=== PATIENT | female | born 1960 | race Caucasian/White ===

== ENCOUNTER 2023-06-12 11:56 | Outpatient (AMB) | payer OTHER, SELFPAY ==
[2023-06-12 12:10] VITALS: BP 124/70; PULSE 91; O2SAT 97; BMI 35.5
--- NOTE | 2023-06-12 12:10 | A.OFFPC_ITS ---
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 Brother: Diabetes. Dad: COPD SocHx: Quit smoking 10 years ago. EtOH 1-2 drinks. No drugs. HPI Comments History of Present Illness Details Documentation assistance for Kenneth Montalvo MD, was provided by Shantanu Strickland, Block Cleaner on 06/12/2023 1:16 PM EST. I, Dr. Montalvo, have read, observed, and verified documentation. [facility] Medical History (Updated 06/12/23 @ 13:09 by Shantanu Strickland) Depression Anxiety Eczema Arthritis High cholesterol Sinusitis Asthma Surgical History (Updated 06/12/23 @ 12:24 by Frances Treadwell CMA) H/O tubal ligation History of tonsillectomy Family History (Updated 06/12/23 @ 12:28 by Frances Treadwell CMA) Mother High blood pressure Diabetes Father High blood pressure Sister High blood pressure Diabetes Substance abuse Mental health disorder Child No Financial Resp Mental health disorder Social History Housing: House Patient Tobacco Use Status: Never used Tobacco e-Cigarette/Vaping Use: Never Used service: No Current occupational status: employed 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 1. Little interest or pleasure in doing things: several days 2. Feeling down, depressed, or hopeless: several days 3. Trouble falling or staying asleep, or sleeping too much: more than half the days 4. Feeling tired or having little energy: more than half the days 5. Poor appetite or overeating: nearly every day 6. Feeling bad about yourself - or that you are a failure or have let yourself or your family down: more than half the days 7. Trouble concentrating on things, such as reading the newspaper or watching television: not at all 8. Moving or speaking so slowly that other people could have noticed. Or the opposite - being so fidgety or restless that you have been moving around a lot more than usual: not at all 9. Thoughts that you would be better off or of hurting yourself in some way: not at all Total score: 11 Source: Developed by Drs. Melo Hunter, Ana Herrera, Asael Brown and colleagues, with an educational tamika from [employer]. Thrive Questionnaire I am a: Patient What is your living situation today?: I have a steady place to live Within the past 12 months, did the food you bought not last and you didn't have the money to get more?: Sometimes True Within the past 12 months, did you worry whether your food would run out before you got money to buy more?: Often true Do you have trouble paying for medicines?: Yes Do you have trouble getting transportation to medical appointments?: No Do you have trouble paying your heating and electricity bill?: Yes Do you have trouble taking care of your child, family member or friend?: No Do you have trouble with day-to-day activities such as bathing, preparing meals, shopping, managing finances, etc.?: No Are you currently unemployed and looking for a job?: No Are you interested in more education?: No AUDIT C Alcohol Use Questionnaire (AUDIT-C) 1. How often do you have a drink containing alcohol?: 2-3 times a week (once a week) 2. How many drinks containing alcohol do you have on a typical day when you are drinking?: 1 or 2 3. How often do you have six or more drinks on one occasion?: Never Total Score: 3 JAYNE-7 AMB Questionnaire JAYNE-7 Feeling nervous, anxious, or on edge: 1 = Several days Not being able to stop or control worryin = More than half the days Worrying too much about different things: 2 = More than half the days Trouble relaxin = More than half the days Being so restless that it is hard to sit still: 0 = Not at all Becoming easily annoyed or irritable: 2 = More than half the days Feeling afraid as if something awful might happen: 0 = Not at all Total JAYNE-7 score (0-4 normal; 5-9 mild; 10-14 moderate; 15-21 severe): 9 Source: Developed by Drs. Melo Hunter, Ana Herrera, Asael Brown and colleagues, with an educational tamika from [employer]. ACT Questionnaire In the past 4 weeks, how much of the time did your asthma keep you from getting as much done at work, school or at home?: None of the time During the past 4 weeks, how often have you had shortness of breath?: Not at all During the past 4 weeks, how often did your asthma symptoms wake you up at night or earlier than usual in the morning?: Not at all During the past 4 weeks, how often have you had to use your rescue inhaler or nebulizer medication?: 2-3 times a week How would you rate your asthma control during the past 4 weeks?: Well controlled Score: 22 Review of Systems Const Denies chills, Denies fatigue, Denies fever(s), Denies headache(s) and Denies weakness ENT Denies dizziness and Denies headache(s) Card Denies chest pain, Denies lightheadedness, Denies dyspnea and Denies other (Palpitations) Resp Denies cough, Denies dyspnea, Denies wheezing and Denies other ( shortness of breath) Musc Denies numbness and Denies tingling Neuro Denies dizziness, Denies headache(s), Denies numbness, Denies tingling, Denies paresthesias and Denies weakness Psych Denies anxiety and Denies depression Endo Denies fatigue Aller/Immun Denies wheezing Physical exam (Primary Care) Vital Signs: Last Vital Signs Pulse 91 06/12/23 12:10 BP 124/70 06/12/23 12:10 Pulse Ox 97 06/12/23 12:10 Oxygen Delivery Method Room Air 06/12/23 12:10 BMI result Body Mass Index 35.5 Tobacco/Smoking Status: Tobacco use Status Tobacco use date assessed 06/12/23 06/12/23 12:36 Patient Tobacco Use Status Never used Tobacco 06/12/23 12:36 e-Cigarette/Vaping Use Never Used 06/12/23 12:36 PHQ-9: PHQ-9 Score PHQ-9: Total score 11 06/12/23 12:51 Const General: no acute distress and well developed Nutritional Appearance: well nourished Orientation/consciousness: patient oriented x3 HENMT Head: Yes normocephalic and Yes atraumatic Eyes General: appearance normal, both eyes and all related structures Pupils: Equal, round and reactive pupils present EOM: EOMs intact bilaterally Resp Effort & Inspection: normal respiratory effort Auscultation: clear to auscultation bilaterally Cardio Rate: regular rate Rhythm: regular rhythm Heart sounds: S1 normal heart sound present, S2 normal heart sound present, no gallops, no murmurs and no rubs Neuro General: patient oriented x3 and gait normal Cranial nerves: Yes Equal, round and reactive pupils present Psych Affect: normal affect Assessment and Plan Assessment & Plan (1) Hypertension: Code(s): I10 - Essential (primary) hypertension Plan: Blood?pressure?is?controlled.??Goal?is?less?than?140/90 Continue?current?medication (2) High cholesterol: Code(s): E78.00 - Pure hypercholesterolemia, unspecified Plan: Check?lipids (3) Pre-diabetes: Code(s): R73.03 - Prediabetes Plan: Pre?diabetes?with?strong?family?history?of?diabetes. Already?started?on?antihyperglycemic?medications?by?he r?prior?PC?though?patient?maintains?that?she?has?never?been?diagnosed?with?diabe anibal. Check?fasting?blood?sugar?and?A1c Continue?metformin Work?at?a?diet?low?in?sugars?and?starches Patient?would?like? a?call?from?the?nurse?navigator?for?nutrition?counseling?regarding?elevated?fast ing?blood?sugars?and?I?will?make?a?referral. (4) Asthma: Code(s): J45.909 - Unspecified asthma, uncomplicated Plan: Stable/controlled Continue?inhaled?medications (5) Laboratory exam ordered as part of routine general medical examination: Code(s): Z00.00 - Encounter for general adult medical examination without abnormal findings Plan: Check?labs Orders: Orders Comprehensive [place]. Panel Fast Today Z00.00 - Encounter for general adult medical examination without abnormal findings Lipid Panel Today Z00.00 - Encounter for general adult medical examination without abnormal findings Microalbumin, Random (w Creat) Today I10 - Essential (primary) hypertension TSH reflex Free T4 Today Z00.00 - Encounter for general adult medical examination without abnormal findings UA and rflx microscopic Today Z00.00 - Encounter for general adult medical examination without abnormal findings Hemoglobin A1c Today R73.01 - Impaired fasting glucose Referrals Nurse Navigator Referral R73.03 - Prediabetes Coding Level of Care Code New Pt Level 4 (18051) Diagnoses Hypertension I10 High cholesterol E78.00 Pre-diabetes R73.03 Asthma J45.909 Laboratory exam ordered as part of routine general medical examination Z00.00
== END 2023-06-12 13:24 | disposition home or self-care (01) ==
PROVIDERS: PCP Family Medicine; Visit Provider Family Medicine
DX: I10 Essential (primary) hypertension (principal); E78.00 Pure hypercholesterolemia, unspecified; R73.03 Prediabetes; J45.909 Unspecified asthma, uncomplicated; Z00.00 Encounter for general adult medical examination without abnormal findings
CPT/HCPCS: 99204

== ENCOUNTER 2023-06-16 14:04 | Outpatient (REF) | payer OTHER, SELFPAY ==
[2023-06-16 16:09] LABS: Appearance Urine Clear; Color Urine Yellow; Glucose Urine UA Negative (Negative); Leukocyte Esterase Urine Small (1+) (Negative); Nitrite Urine Negative (Negative); UMIC TRIGGER UA YES; Urine Blood Negative (Negative); Urine Ketones Negative (Negative); Urine Protein Negative (Neg-Trace)
[2023-06-16 16:39] LABS: Alanine Aminotransferase 30 U/L (0-31); Albumin Level 4.4 g/dL (3.5-5.0); Alkaline Phosphatase 117 U/L (39-117); Anion Gap 12 (12-20); Aspartate Amino Transferase 17 U/L (5-31); Bilirubin Total 0.5 mg/dL (0.0-1.0); Blood Urea Nitrogen 11 mg/dL (9-16); Calcium 10.4 mg/dL (8.4-10.2); Carbon Dioxide 25 mmol/L (22-29); Chloride 106 mmol/L (96-108); Cholesterol 209 mg/dL (<200); Estimated Glomerular Filt Rate > 60; Glucose Fasting 121 mg/dL (60-99); HDL Cholesterol 47 mg/dL (>40); LDL Cholesterol Calculated 114 mg/dL (<100); Potassium 3.7 mmol/L (3.3-5.1); Sodium 139 mmol/L (135-145); Total Protein 7.2 g/dL (6.5-8.0); Triglycerides 241 mg/dL (<150)
[2023-06-16 16:46] LABS: TSH reflex Free T4 1.09 uIU/mL (0.32-4.0)
[2023-06-16 16:47] LABS: Estimated Average Glucose 126 mg/dL
[2023-06-16 16:49] LABS: Creatinine Urine 31.41 mg/dL; Microalbumin Urine < 5.0 mg/L
[2023-06-16 17:43] LABS: Bacteria Urine None Seen (None Seen); Hyaline Casts Urine 0-2 /LPF (0-2); RBC Urine 0-2 /HPF (0-2); Squamous Epithelial Cell Urine 0-2 /HPF (0-2)
== END 2023-06-16 14:05 | disposition home or self-care (01) ==
LOC: HO.HMGCLDS 14:04
PROVIDERS: PCP Family Medicine; Visit Provider Family Medicine
DX: Z00.00 Encounter for general adult medical examination without abnormal findings (principal); I10 Essential (primary) hypertension; R73.01 Impaired fasting glucose
CPT/HCPCS: 36415; 80053; 80061; 81001; 81003; 82043; 82570; 83036; 84443

== ENCOUNTER 2023-07-16 10:02 | Outpatient (AMB) | payer OTHER, SELFPAY ==
--- NOTE | 2023-07-16 09:56 | MHC.PC.OV ---
Intake Visit Reasons: discuss medication Intake Note: Patient would like Metformin adjusted, her numbers are too high. She would like refill of Ibuprofen. She would like to talk about [employer] Allyson system, and Glucometer prescription. Allergies No Known Allergies Allergy (Verified 07/16/23 09:59) Tobacco use date assessed: 07/16/23 HPI discuss medication HPI Details 62 y/o female presents to f/u meds. She would like her metformin adjusted as her blood sugars are too high. She is on metformin 500mg daily. She has a hx of pre-diabetes. Last A1c 06/16/23 was 6.0%. She reports highest morning blood sugar was 176. 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 Cognitive needs: No Hearing needs: No Vision needs: No Review of Systems Const Denies chills, Denies fatigue, Denies fever(s), Denies headache(s) and Denies weakness ENT Denies dizziness and Denies headache(s) Card Denies dyspnea Resp Denies cough, Denies dyspnea, Denies wheezing and Denies other (shortness of breath) Musc Denies numbness and Denies tingling Neuro Denies dizziness, Denies headache(s), Denies numbness, Denies tingling and Denies weakness Psych Denies anxiety and Denies depression Endo Denies fatigue Aller/Immun Denies wheezing Physical exam (Primary Care) Tobacco/Smoking Status: Tobacco use Status Tobacco use date assessed 07/16/23 07/16/23 10:00 Patient Tobacco Use Status Never used Tobacco 07/16/23 10:00 e-Cigarette/Vaping Use Never Used 07/16/23 10:00 Telehealth Telehealth Location of provider rendering services: practice address Location of patient: address on file Patient Identification confirmed using: Name, : Yes Telehealth method: voice only Patient verbally consented to treatment: Yes Patient verbally consented to billing insurance company: Yes Patient informed of any privacy concerns related to visit: Yes Minutes spent on Phone/Video with Pt.: 5 Assessment and Plan Assessment & Plan (1) Diabetes: Code(s): E11.9 - Type 2 diabetes mellitus without complications Plan: Fasting?blood?sugars?in?160s?170s?despite?metformin?500?mg?daily. Increased?metformin?to?500?mg?b.i.d.?and?we?may?need?to?adjust?this?further?or?add?a?2nd?medication. Will?also?prescribe?Allyson?system?so?patient?can?see?affects?of?food?and?exercise/lifestyle?in?real-time Medications: New blood-glucose sensor ([employer] Allyson 3 Sensor device) As directed 2 ea 3RF E11.9 - Type 2 diabetes mellitus without complications Changed From metformin 500 mg PO BID To metformin 500 mg PO BID 30 days 60 tabs 2RF From ibuprofen 800 mg PO BID PRN pain To ibuprofen 800 mg PO BID 30 days PRN 60 tabs 2RF pain Coding Level of Care Code Tele Est Pt Level 2 (52480) Diagnoses Diabetes E11.9
== END 2023-07-21 16:28 | disposition home or self-care (01) ==
LOC: HO.HMGFM 10:02
PROVIDERS: PCP Family Medicine; Visit Provider Family Medicine
DX: E11.9 Type 2 diabetes mellitus without complications (principal)
CPT/HCPCS: 99212

== ENCOUNTER 2023-11-18 15:53 | Outpatient (AMB) | payer OTHER, SELFPAY ==
[2023-11-18 16:18] VITALS: BP 130/70; PULSE 89; O2SAT 97; BMI 35.3
--- NOTE | 2023-11-18 16:18 | MHC.PC.OV ---
Vital Signs 11/18/23 16:18 Height 5 ft 6 in Weight 219 lb BMI 35.3 BP 130/70 Blood Pressure Location Lt brachial Position Sitting Pulse 89 Pulse Source Pulse Oximeter Pulse Oximetry (%) 97 Oxygen Delivery Method Room Air Intake Visit Reasons: CPE with f/u labs, Rescheduled from Intake Note: Patient is here for her physical today. Patient would like refill on Triamcinolone cream, and Metformin refills. Allergies No Known Allergies Allergy (Verified 11/18/23 16:19) Tobacco use date assessed: 11/18/23 Dental Screening Dental Screen Date: 11/18/23 Did you have a dental visit in the last 12 months?: Yes Did you have a dental problem in the last 6 months where you did not have access to dental care?: No Was dental information given to patient?: Patient has dentist HPI CPE with f/u labs, Rescheduled from HPI Details 63 y/o female presents for a CPE with f/u labs and health maintenance. Labs were drawn 06/16/23. A1c 6.0%. A1c today 11/18/23 is 7.4.%. Triglycerides 241. TC 209. LDL 114. HDL 47. HPI Comments History of Present Illness Details Documentation assistance for Kenneth Montalvo MD, was provided by Shantanu Strickland, Ornamental Iron Worker Helper on 11/18/2023 4:48 PM EST. I, Dr. Montalvo, have read, observed, and verified documentation. 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 1. Little interest or pleasure in doing things: not at all 2. Feeling down, depressed, or hopeless: not at all 3. Trouble falling or staying asleep, or sleeping too much: not at all 4. Feeling tired or having little energy: not at all 5. Poor appetite or overeating: not at all 6. Feeling bad about yourself - or that you are a failure or have let yourself or your family down: not at all 7. Trouble concentrating on things, such as reading the newspaper or watching television: not at all 8. Moving or speaking so slowly that other people could have noticed. Or the opposite - being so fidgety or restless that you have been moving around a lot more than usual: not at all 9. Thoughts that you would be better off or of hurting yourself in some way: not at all Total score: 0 Depression Screening Interpretation: Negative Depression Screening Done: Yes 67153 - PHQ-9 Billing: Yes Source: Developed by Drs. Melo Hunter, Ana Herrera, Asael Brown and colleagues, with an educational tamika from [employer]. Thrive Questionnaire Date Thrive assessed: 11/18/23 I am a: Patient What is your living situation today?: I have a steady place to live Within the past 12 months, did the food you bought not last and you didn't have the money to get more?: Never true Within the past 12 months, did you worry whether your food would run out before you got money to buy more?: Never true Do you have trouble paying for medicines?: No Do you have trouble getting transportation to medical appointments?: No Do you have trouble paying your heating and electricity bill?: No Do you have trouble taking care of your child, family member or friend?: No Do you have trouble with day-to-day activities such as bathing, preparing meals, shopping, managing finances, etc.?: No Are you currently unemployed and looking for a job?: No Are you interested in more education?: No THRIVE Score: 0 AUDIT C Alcohol Use Questionnaire (AUDIT-C) 1. How often do you have a drink containing alcohol?: 2-3 times a week 2. How many drinks containing alcohol do you have on a typical day when you are drinking?: 1 or 2 3. How often do you have six or more drinks on one occasion?: Never Total Score: 3 JAYNE-7 AMB Questionnaire JAYNE-7 Date JAYNE - 7 assessed: 11/18/23 Feeling nervous, anxious, or on edge: 1 = Several days Not being able to stop or control worryin = Several days Worrying too much about different things: 1 = Several days Trouble relaxin = Several days Being so restless that it is hard to sit still: 1 = Several days Becoming easily annoyed or irritable: 1 = Several days Feeling afraid as if something awful might happen: 1 = Several days Total JAYNE-7 score (0-4 normal; 5-9 mild; 10-14 moderate; 15-21 severe): 7 Source: Developed by Drs. Melo Hunter, Ana Herrera, Asael Brown and colleagues, with an educational tamika from [employer]. JAYNE-7 Assessment Billing JAYNE-7 Assessment Tool: JAYNE-7 Assessment 10020 Review of Systems Const Denies chills, Denies fatigue, Denies fever(s), Denies headache(s) and Denies weakness Eyes Denies change in vision ENT Denies dizziness, Denies headache(s), Denies hearing loss, Denies nasal congestion, Denies sinus pain, Denies sinus pressure and Denies sore throat Card Denies chest pain, Denies lightheadedness, Denies dyspnea and Denies other (palpitations) Resp Denies cough, Denies dyspnea and Denies wheezing GI Denies abdominal pain, Denies melena, Denies hematochezia, Denies change in bowel habits, Denies dyspepsia and Denies nausea Denies hematuria and Denies dysuria Musc Denies abnormal gait, Denies myalgias, Denies arthralgias, Denies numbness and Denies tingling Skin/Breast Denies rash, Denies unusual bruising and Denies wounds Neuro Denies abnormal gait, Denies dizziness, Denies headache(s), Denies memory loss, Denies numbness, Denies Sensory deficit (Neuro), Denies tingling and Denies weakness Psych Denies anxiety, Denies depression and Denies memory loss Endo Denies cold intolerance, Denies fatigue, Denies heat intolerance, Denies polydipsia and Denies polyuria Dean/Lymph Denies easy bleeding and Denies easy bruising Aller/Immun Denies wheezing Physical exam (Primary Care) Vital Signs: Last Vital Signs Pulse 89 11/18/23 16:18 BP 130/70 11/18/23 16:18 Pulse Ox 97 11/18/23 16:18 Oxygen Delivery Method Room Air 11/18/23 16:18 BMI result Body Mass Index 35.3 Tobacco/Smoking Status: Tobacco use Status Tobacco use date assessed 11/18/23 11/18/23 16:27 Patient Tobacco Use Status Never used Tobacco 11/18/23 16:27 e-Cigarette/Vaping Use Never Used 11/18/23 16:27 PHQ-9: PHQ-9 Score PHQ-9: Total score 0 11/18/23 16:41 Depression Screening Interpretation: Negative Thrive Assessment: Date of Thrive Assessment Date Thrive assessed 11/18/23 11/18/23 16:27 Const General: no acute distress, well developed, alert and awake Nutritional Appearance: well nourished Orientation/consciousness: patient oriented x3 HENMT Head: Yes normocephalic and Yes atraumatic Ears: hearing grossly normal bilaterally and TM's normal bilaterally General nose exam: Normal external nose present and Normal nares present Mouth: Normal oral and palatal mucosa present and moist mucous membranes Teeth and gingiva: dentition normal Throat: Yes posterior oropharynx normal Eyes General: appearance normal, both eyes and all related structures Pupils: Equal, round and reactive pupils present and Pupil accommodation reflex normal EOM: EOMs intact bilaterally Neck Neck: Yes normal visual inspection, Yes no lymphadenopathy and Yes trachea midline Thyroid: Thyroid normal Carotids: no bruits Lymphatic: no lymphadenopathy noted Chest Chest palpation & inspection: normal inspection of the chest Resp Effort & Inspection: normal respiratory effort Auscultation: clear to auscultation bilaterally Cardio Rate: regular rate Rhythm: regular rhythm Heart sounds: S1 normal heart sound present, S2 normal heart sound present, no gallops, no murmurs and no rubs Bruits: no abdominal aortic bruits and no carotid bruits GI Palpation (GI): No Abdominal aortic bruit present, Soft to palpation, nontender, No hepatosplenomegaly present and No Rebound tenderness present Auscultation: normal bowel sounds General: Yes no CVA tenderness Back/Spine/Pelvis Back: no CVA tenderness Cervical Spine: cervical ROM normal and No Cervical spine tenderness Thoracic/Lumbar Spine: thoraco-lumbar ROM normal, No pain with thoraco-lumbar ROM, No thoracic spinal tenderness and No lumbar spinal tenderness Skin Lesions: no lesions Rashes: no rashes Trauma: no lacerations or abrasions Wounds: no wounds Nails: normal Neuro General: patient oriented x3 Cranial nerves: Yes Equal, round and reactive pupils present Cognition (Neuro): normal cognition Gait exam (Neuro): Normal gait present Motor exam (neuro): 5/5 motor strength present throughout Sensory Exam: No Sensory deficit (Neuro) Deep tendon reflexes (DTR's): Right patellar reflex intensity grade: 2+ and Left patellar reflex intensity grade: 2+ Extrem General: Yes normal to inspection and No edema Psych Appearance: grossly normal Affect: normal affect Attitude: cooperative Thought process: Normal thought process present Assessment and Plan Assessment & Plan (1) Adult general medical exam: Code(s): Z00.00 - Encounter for general adult medical examination without abnormal findings Plan: 63-year-old?female?presents?for?complete?physical?exam Encouraged?healthy?diet?with?active?lifestyle?and?plenty?of?exercise (2) Diabetes: Code(s): E11.9 - Type 2 diabetes mellitus without complications Plan: A1c?climbed?to?7.6 %. She?will?continue?metformin.??Will?add?Ozempic Will?ask?the?nurse?navigator?to?get?back?in?touch?with?her?to?continue?diabetic?teaching Encouraged?exercise?and?weight?loss (3) High cholesterol: Code(s): E78.00 - Pure hypercholesterolemia, unspecified Plan: LDL?cholesterol?is?a?little?above?goal?of?less?than?100?for?patient?with?diabetes. She?says?that?she?is?already?on?a?statin?medication?though?it?is?not?in?our?medication?list.??She?will?check?with?her?pharmacy?an?update?our?med?list. She?will?work?on?a?diet?low?in?saturated?fats?and?cholesterol?and?continue?taking?her?medication She?will?get?her?labs?redrawn?prior?to?her?next?visit?and?if?she?has?still?not?at?goal?we?will?adjust?her?medications (4) Hypertension: Code(s): I10 - Essential (primary) hypertension Plan: Blood?pressure?is?controlled.??Goal?is?less?than?140/90 Continue?current?medications (5) Screening for colon cancer: Code(s): Z12.11 - Encounter for screening for malignant neoplasm of colon Plan: Patient?had?a?Cologuard?test?about?3?years?ago She?is?due?for?repeat?Cologuard?test-ordered (6) Breast cancer screening by mammogram: Code(s): Z12.31 - Encounter for screening mammogram for malignant neoplasm of breast Plan: Patient?had?mammogram?last?month?and?is?followed?by?her?indoor sports centre manager Up-to-date (7) Screening for cervical cancer: Code(s): Z12.4 - Encounter for screening for malignant neoplasm of cervix Plan: Patient?had?Pap?smear?last?year?with?indoor sports centre manager Gets?Pap?smears?every?3?years Up-to-date Orders: Orders Lipid Panel Today E78.00 - Pure hypercholesterolemia, unspecified, Z00.00 - Encounter for general adult medical examination without abnormal findings AMB Hemoglobin A1c Today Z13.9 - Encounter for screening, unspecified Comprehensive [place]. Panel Fast Today E78.00 - Pure hypercholesterolemia, unspecified, Z00.00 - Encounter for general adult medical examination without abnormal findings Hemoglobin A1c Today E11.9 - Type 2 diabetes mellitus without complications, R73.01 - Impaired fasting glucose Referrals Cologuard Test Z12.11 - Encounter for screening for malignant neoplasm of colon, Z12.12 - Encounter for screening for malignant neoplasm of rectum Medications: New semaglutide (Ozempic) for 4 weeks 0.25 mg (0.368 mL) subcut QWEEK 1.472 mL 3RF 28 days E11.9 - Type 2 diabetes mellitus without complications Changed From triamcinolone acetonide 0.1% 1 appl topical DAILY To triamcinolone acetonide 0.1% 1 appl topical DAILY 14 days 60 grams 0RF Coding Level of Care Code Est Pt Level 3 (49777) Est Pt Prev Care 40-64y(75759) Diagnoses Adult general medical exam Z00.00 Diabetes E11.9 High cholesterol E78.00 Hypertension I10 Screening for colon cancer Z12.11 Breast cancer screening by mammogram Z12.31 Screening for cervical cancer Z12.4 Additional Codes JAYNE-7 Assessment Billing - JAYNE-7 Assessment Tool: JAYNE-7 Assessment 17998 ([id number])
== END 2023-11-18 17:00 | disposition home or self-care (01) ==
PROVIDERS: PCP Family Medicine; Visit Provider Family Medicine
DX: E11.9 Type 2 diabetes mellitus without complications (principal)
CPT/HCPCS: 83036; 99213; 99396

== ENCOUNTER 2024-02-18 15:50 | Outpatient (AMB) | payer OTHER, SELFPAY ==
--- NOTE | 2024-02-18 15:52 | A.OFFPC_ITS ---
Vital Signs 02/18/24 16:07 Height 5 ft 6 in Weight 209 lb BMI 33.7 BP 126/70 Blood Pressure Location Lt brachial Position Sitting Pulse 102 H Pulse Source Pulse Oximeter Pulse Oximetry (%) 97 Oxygen Delivery Method Room Air Intake Visit Reasons: f/u DM & Cholesterol Intake Note: Patient is here for follow up on diabetes and cholesterol. Allergies No Known Allergies Allergy (Verified 02/18/24 16:00) Tobacco use date assessed: 02/18/24 Dental Screening Dental Screen Date: 11/18/23 HPI f/u DM & Cholesterol HPI Details 63 y/o female presents to f/u diabetes a nd cholesterol. No recent labs to review for her cholesterol. Had added Ozempic for her diabetes as A1c had climbed to 7.4%. A1c today 02/18/24 is 6.6%. She is on metformin 500mg b.i.d., semaglutide 1mg. Blood pressure today 126/70, 102p. She is on losartan 100mg daily. HPI Comments History of Present Illness Details Documentation assistance for Kenneth Montalvo MD, was provided by Shantanu Strickland,? Tow Motor Operator on 02/18/2024 at 4:33 PM EST. I, Dr. Montalvo, have read, observed, and verified documentation. 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 Melo Hunter, Ana Herrera, Asael Brown and colleagues, with an educational tamika from [employer]. Review of Systems Const Denies chills, Denies fatigue, Denies fever(s), Denies headache(s) and Denies weakness ENT Denies dizziness and Denies headache(s) Card Denies dyspnea Resp Denies cough, Denies dyspnea, Denies wheezing and Denies other (shortness of breath) Musc Denies numbness and Denies tingling Neuro Denies dizziness, Denies headache(s), Denies numbness, Denies tingling and Denies weakness Psych Denies anxiety and Denies depression Endo Denies fatigue Aller/Immun Denies wheezing Physical exam (Primary Care) Vital Signs: Last Vital Signs Pulse 102 H 02/18/24 16:07 BP 126/70 02/18/24 16:07 Pulse Ox 97 02/18/24 16:07 Oxygen Delivery Method Room Air 02/18/24 16:07 BMI result Body Mass Index 33.7 Tobacco/Smoking Status: Tobacco use Status Tobacco use date assessed 02/18/24 02/18/24 16:00 Patient Tobacco Use Status Never used Tobacco 02/18/24 15:53 e-Cigarette/Vaping Use Never Used 02/18/24 15:53 Thrive Assessment: Date of Thrive Assessment Date Thrive assessed 11/18/23 02/18/24 15:53 Const General: well developed; No acute distress Nutritional Appearance: well nourished Orientation/consciousness: patient oriented x3 HENMT Head: Yes normocephalic and Yes atraumatic Eyes General: appearance normal, both eyes and all related structures Pupils: Equal, round and reactive pupils present EOM: EOMs intact bilaterally Resp Effort & Inspection: normal respiratory effort Auscultation: clear to auscultation bilaterally Cardio Rate: regular rate Rhythm: regular rhythm Heart sounds: S1 normal heart sound present, S2 normal heart sound present, no gallops, no murmurs and no rubs Neuro General: patient oriented x3 and gait normal Cranial nerves: Yes Equal, round and reactive pupils present Psych Affect: normal affect Assessment and Plan Assessment & Plan (1) Diabetes: Code(s): E11.9 - Type 2 diabetes mellitus without complications Plan: A1c?was?7.4%?and?I?added?Ozempic?at?last?visit. A1c?now?6.6% - good?control?and?at?goal?of?less?than?7.0%. Has?also?help?patient?with?weight?loss?and?she?would?like?to?continue?this Will?increase?Ozempic?from?0.5?to?1.0?mg?weekly (2) Hypertension: Code(s): I10 - Essential (primary) hypertension Plan: Blood?pressure?is?controlled.??Goal?is Less?than?140/90 Continue?current?medication (3) High cholesterol: Code(s): E78.00 - Pure hypercholesterolemia, unspecified Plan: Patient?takes?pravastatin She?has?not?gotten?her?labs?drawn?yet?but?will?do??and?we?will?follow- up?on?this?at?her?next?visit Medications: New pravastatin 10 mg PO DAILY 90 days 90 tabs 3RF Changed From metformin 500 mg PO BID 30 days 60 tabs 2RF To metformin 500 mg PO BID 90 days 180 tabs 2RF From semaglutide for 4 weeks 1 mg (0.75 mL) subcut QWEEK 28 days 3 mL 3RF E11.9 - Type 2 diabetes mellitus without complications To semaglutide for 4 weeks 1 mg (0.75 mL) subcut QWEEK 84 days 9 mL 3RF E11.9 - Type 2 diabetes mellitus without complications Coding Level of Care Code Est Pt Level 4 (48015) Diagnoses Diabetes E11.9 Hypertension I10 High cholesterol E78.00
[2024-02-18 16:07] VITALS: BP 126/70; PULSE 102; O2SAT 97; BMI 33.7
== END 2024-02-18 16:55 | disposition home or self-care (01) ==
PROVIDERS: PCP Family Medicine; Visit Provider Family Medicine
DX: E11.9 Type 2 diabetes mellitus without complications (principal); I10 Essential (primary) hypertension; E78.00 Pure hypercholesterolemia, unspecified
CPT/HCPCS: 99214

== ENCOUNTER 2024-04-26 12:25 | Outpatient (REF) | payer OTHER, SELFPAY ==
[2024-04-26 13:56] LABS: Estimated Average Glucose 103 mg/dL; Hemoglobin A1c % 5.2 % (<6.0)
[2024-04-26 14:33] LABS: Alanine Aminotransferase 17 U/L (0-31); Albumin Level 4.3 g/dL (3.5-5.0); Alkaline Phosphatase 104 U/L (39-117); Anion Gap 11 (12-20); Aspartate Amino Transferase 12 U/L (5-31); Bilirubin Total 0.4 mg/dL (0.0-1.0); Blood Urea Nitrogen 10 mg/dL (9-16); Calcium 9.5 mg/dL (8.4-10.2); Carbon Dioxide 26 mmol/L (22-29); Chloride 107 mmol/L (96-108); Cholesterol 165 mg/dL (<200); Estimated Glomerular Filt Rate > 60; Glucose Fasting 104 mg/dL (60-99); HDL Cholesterol 47 mg/dL (>40); LDL Cholesterol Calculated 84 mg/dL (<100); Potassium 3.2 mmol/L (3.3-5.1); Sodium 141 mmol/L (135-145); Triglycerides 171 mg/dL (<150)
== END 2024-04-26 12:26 | disposition home or self-care (01) ==
LOC: HO.HMGCLDS 12:25
PROVIDERS: PCP Family Medicine; Visit Provider Family Medicine
DX: Z00.00 Encounter for general adult medical examination without abnormal findings (principal); E78.00 Pure hypercholesterolemia, unspecified; R73.01 Impaired fasting glucose; E11.9 Type 2 diabetes mellitus without complications
CPT/HCPCS: 36415; 80053; 80061; 83036

== ENCOUNTER 2024-06-02 15:35 | Outpatient (AMB) | payer OTHER, SELFPAY ==
--- NOTE | 2024-06-02 16:06 | A.OFFPC_ITS ---
Vital Signs 06/02/24 16:08 Height 5 ft 6 in Weight 211 lb BMI 34.1 BP 120/80 Blood Pressure Location Lt brachial Position Sitting Respiration 12 Pulse 94 Pulse Source Pulse Oximeter Temp 98 F Temp Source Tympanic Pulse Oximetry (%) 96 Oxygen Delivery Method Room Air Intake Visit Reasons: f/u diabetes, hypertension Intake Note: f/u DM and HTN Allergies No Known Allergies Allergy (Verified 06/02/24 16:07) Medication List - Last Reconciled 06/02/24 by Kenneth Montalvo MD albuterol sulfate 90 mcg/actuation (ProAir HFA) 2 puffs inhalation Q4-6H PRN blood sugar diagnostic (OneTouch Ultra Test strips) As directed, 90 days blood sugar diagnostic (FreeStyle Lite Strips) DX: E11.9, test blood sugar 2 times a day, 90 days blood-glucose meter (Medicine in PracticeTouch Ultra2 Meter) As directed blood-glucose meter (FreeStyle Lite Meter kit) DX: E11.9, test blood sugar as directed, 999 days blood-glucose meter,continuous (DexCommuniClique G7 Project Safety Manager) As directed blood-glucose sensor (Dexcom G7 Sensor device) As directed budesonide 180 mcg/actuation (Pulmicort Flexhaler) 2 inhalations inhalation QAM bupropion HCl XL 300 mg PO QAM 90 days diltiazem HCl ER 240 mg PO DAILY ibuprofen 800 mg PO BID PRN 30 days lancets (OneTouch UltraSoft 2 Lancet) As directed, 90 days lancets (FreeStyle Lancets) Test blood sugar 2 times a day. 90 days losartan 100 mg PO DAILY 90 days metformin 500 mg PO BID 90 days pravastatin 10 mg PO DAILY 90 days semaglutide 1 mg (0.75 mL) subcut QWEEK 84 days triamcinolone acetonide 0.1% 1 appl topical DAILY 14 days Tobacco use date assessed: 02/18/24 Dental Screening Dental Screen Date: 11/18/23 HPI f/u diabetes, hypertension HPI Details 63 y/o female presents to f/u diabetes, hypertension, HLD. Last A1c 02/18/24 6.6%. She is on metformin 500mg b.i.d., semaglutide 1mg. Blood pressure today 120/80, 94p. She is on losartan 100mg daily. Last A1c 04/26/24 5.2%. Labs drawn 8/13/24. Reviewed labs with pt. Triglycerides 171. TC 165. LDL 84. HDL 47. She is on pravastatin 10mg daily. HPI Comments History of Present Illness Details Documentation assistance for Kenneth Montalvo MD, was provided by Shantanu Strickland,? Knife Machine Operator on 06/02/2024 at 4:46 PM EST. I, Dr. Montalvo, have read, observed, and verified documentation. 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 How many drinks containing alcohol do you have on a typical day when you are drinking?: 1 or 2 3. How often do you have six or more drinks on one occasion?: Never Total Score: 0 JAYNE-7 AMB Questionnaire JAYNE-7 Date JAYNE - 7 assessed: 11/18/23 Source: Developed by Drs. Melo Hunter, Ana Herrera, Asael Brown and colleagues, with an educational tamika from [employer]. Review of Systems Const Denies chills, Denies fatigue, Denies fever(s), Denies headache(s) and Denies weakness ENT Denies dizziness and Denies headache(s) Card Denies dyspnea Resp Denies cough, Denies dyspnea, Denies wheezing and Denies other (shortness of breath) Musc Denies numbness and Denies tingling Neuro Denies dizziness, Denies headache(s), Denies numbness, Denies tingling and Denies weakness Psych Denies anxiety and Denies depression Endo Denies fatigue Aller/Immun Denies wheezing Physical exam (Primary Care) Vital Signs: Last Vital Signs Temp 98 F 06/02/24 16:08 Pulse 94 06/02/24 16:08 Resp 12 06/02/24 16:08 BP 120/80 06/02/24 16:08 Pulse Ox 96 06/02/24 16:08 Oxygen Delivery Method Room Air 06/02/24 16:08 BMI result Body Mass Index 34.1 Tobacco/Smoking Status: Tobacco use Status Tobacco use date assessed 02/18/24 06/02/24 16:18 Patient Tobacco Use Status Never used Tobacco 06/02/24 16:18 e-Cigarette/Vaping Use Never Used 06/02/24 16:18 Thrive Assessment: Date of Thrive Assessment Date Thrive assessed 11/18/23 06/02/24 16:18 Const General: well developed; No acute distress Nutritional Appearance: obese Orientation/consciousness: patient oriented x3 [facility] Head: Yes normocephalic and Yes atraumatic Eyes General: appearance normal, both eyes and all related structures Pupils: Equal, round and reactive pupils present EOM: EOMs intact bilaterally Resp Effort & Inspection: normal respiratory effort Auscultation: clear to auscultation bilaterally Cardio Rate: regular rate Rhythm: regular rhythm Heart sounds: S1 normal heart sound present, S2 normal heart sound present, no gallops, no murmurs and no rubs Neuro General: patient oriented x3 and gait normal Cranial nerves: Yes Equal, round and reactive pupils present Psych Affect: normal affect Assessment and Plan Assessment & Plan (1) Diabetes: Code(s): E11.9 - Type 2 diabetes mellitus without complications Plan: A1c?shows?good?control.??Goal?is?less?than?7.0% Patient?is?also?using?Ozempic?for?weight?loss?and?she?requests?an?increase?in?he r?dose. Will?increase?Ozempic?to?2?mg?weekly.??Check?blood?sugars.??Eat?regular?meals?an d?follow-up?with?diabetic?teacher. Patient?says?she?got?an?eye?exam?very?recently.??Will?request?report (2) Hypertension: Code(s): I10 - Essential (primary) hypertension Plan: Blood?pressure?is?controlled.??Goal?is?less?than?140/90 Continue?current?medication (3) High cholesterol: Code(s): E78.00 - Pure hypercholesterolemia, unspecified Plan: LDL?cholesterol?much?improved?and?at?goal?of?less?than?100 Triglycerides?are?still?mildly?elevated. ?Keep?working?on?a?diet?lower?in?saturated?fats?and?cholesterol. ?Continue?blood?sugar?control (4) Immunization counseling: Code(s): Z71.85 - Encounter for immunization safety counseling Plan: Patient?was?enquiring?about?RSV?vaccine I?recommend?this?but?we?do?not?carry?it?here.??She?will?get?at?her?pharmacy. (5) Screening for colon cancer: Code(s): Z12.11 - Encounter for screening for malignant neoplasm of colon Plan: Cologuard?test?was?ordered?earlier?this?year?but?patient?did?not?receive?the?kit . Reordered?Cologuard?test Orders: Referrals Cologuard Test Z12.11 - Encounter for screening for malignant neoplasm of col on, Z12.12 - Encounter for screening for malignant neoplasm of rectum Medications: Changed From semaglutide for 4 weeks 1 mg (0.75 mL) subcut QWEEK 84 days 9 mL 3RF E11.9 - Type 2 diabetes mellitus without complications To semaglutide for 4 weeks 2 mg (0.75 mL) subcut QWEEK 84 days 9 mL 3RF E11.9 - Type 2 diabetes mellitus without complications Coding Level of Care Code Est Pt Level 4 (86066) Diagnoses Diabetes E11.9 Hypertension I10 High cholesterol E78.00 Immunization counseling Z71.85 Screening for colon cancer Z12.11
[2024-06-02 16:08] VITALS: BP 120/80; PULSE 94; RESP 12; TEMP 36.6; O2SAT 96; BMI 34.1
== END 2024-06-02 16:59 | disposition home or self-care (01) ==
PROVIDERS: PCP Family Medicine; Visit Provider Family Medicine
DX: E11.9 Type 2 diabetes mellitus without complications (principal); I10 Essential (primary) hypertension; E78.00 Pure hypercholesterolemia, unspecified; Z71.85 Encounter for immunization safety counseling; Z12.11 Encounter for screening for malignant neoplasm of colon

== ENCOUNTER → 2024-06-02 15:35 | Outpatient (BNVA) | payer OTHER, SELFPAY | PROVIDERS: PCP Family Medicine; Visit Provider Family Medicine | DX: E11.9 Type 2 diabetes mellitus without complications (principal); I10 Essential (primary) hypertension; E78.00 Pure hypercholesterolemia, unspecified; Z71.85 Encounter for immunization safety counseling ==

== ENCOUNTER → 2024-08-31 15:37 | Outpatient (AMB) | payer OTHER, SELFPAY ==
--- NOTE | 2024-08-31 15:32 | A.OFFPC_ITS ---
Intake Visit Reasons: sinus infection Intake Note: Sinus congestion, headache, bilateral ear pain, sneezing, wheezing. Symptoms started on Thursday. Home covid test negative yesterday. Allergies No Known Allergies Allergy (Verified 06/02/24 16:07) Medication List - Last Reconciled 08/31/24 by Sara Pompa PA-C albuterol sulfate 90 mcg/actuation (ProAir HFA) 2 puffs inhalation Q4-6H PRN blood sugar diagnostic (OneTouch Ultra Test strips) As directed, 90 days blood sugar diagnostic (FreeStyle Lite Strips) DX: E11.9, test blood sugar 2 times a day, 90 days blood-glucose meter (VitasoftTouch Ultra2 Meter) As directed blood-glucose meter (FreeStyle Lite Meter kit) DX: E11.9, test blood sugar as directed, 999 days blood-glucose meter,continuous (ScanDigital G7 Graphic Editor) As directed blood-glucose sensor (Dexcom G7 Sensor device) As directed budesonide 180 mcg/actuation (Pulmicort Flexhaler) 2 inhalations inhalation QAM bupropion HCl XL 300 mg PO QAM 90 days diltiazem HCl ER 240 mg PO DAILY ibuprofen 800 mg PO BID PRN 30 days lancets (OneTouch UltraSoft 2 Lancet) As directed, 90 days lancets (FreeStyle Lancets) Test blood sugar 2 times a day. 90 days losartan 100 mg PO DAILY 90 days metformin 500 mg PO BID 90 days pravastatin 10 mg PO DAILY 90 days semaglutide 2 mg (0.75 mL) subcut QWEEK 84 days Tobacco use date assessed: 02/18/24 Dental Screening Dental Screen Date: 11/18/23 HPI sinus infection HPI Details Pt is a 63 y/o female who presents today for an urgent visit regarding a possible sinus infection. She states that a week ago she started with cold symptoms of sinus pain, ear pressure, pnd and sneezing. She states it feels like it is mostly in her sinuses and not in her chest. No fever or chills. She has been using dayquil and nyquil and states she is getting worse. She restarted her flonase without much improvement of the nasal congestion. She has also been coughing from the postnasal drip. She states that her asthma feels a bit inflamed. She has been using albuterol more than normal, at least twice a day. She is compliant with her maintenance inhalers. Took 2- COVID test. No one around her is sick. She denies any nausea, vomiting or diarrhea. Blood sugars are currently well-controlled around 120. . 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 Melo Hunter, Ana Herrera, Asael Brown and colleagues, with an educational tamika from [employer]. Physical exam (Primary Care) Tobacco/Smoking Status: Tobacco use Status Tobacco use date assessed 02/18/24 08/31/24 15:35 Patient Tobacco Use Status Never used Tobacco 08/31/24 15:35 e-Cigarette/Vaping Use Never Used 08/31/24 15:35 Thrive Assessment: Date of Thrive Assessment Date Thrive assessed 11/18/23 08/31/24 15:35 Telehealth Telehealth Telehealth Platform: Telephone Location of provider rendering services: practice address Location of patient: address on file Patient Identification confirmed using: Name, : Yes Telehealth method: voice only Patient verbally consented to treatment: Yes Patient verbally consented to billing insurance company: Yes Patient informed of any privacy concerns related to visit: Yes Minutes spent on Phone/Video with Pt.: 15 Coding Level of Care Code Tele Est Pt Level 3 (79296) Diagnoses Bacterial sinusitis J32.9; B96.89 T2DM (type 2 diabetes mellitus) E11.9 Asthma exacerbation J45.901 Assessment & Plan Assessment & Plan (1) Bacterial sinusitis: Code(s): J32.9 - Chronic sinusitis, unspecified; B96.89 - Other specified bacterial agents as the cause of diseases classified elsewhere Category: Medical Plan: We will start on Augmentin. Discussed risks and benefits and adverse effects such as GI upset. Advised to take with food. Continue with the nasal spray. (2) T2DM (type 2 diabetes mellitus): Code(s): E11.9 - Type 2 diabetes mellitus without complications Category: Medical Plan: Monitor blood sugars closely. Did discuss that being sick and steroids can elevate blood sugars. (3) Asthma exacerbation: Code(s): J45.901 - Unspecified asthma with (acute) exacerbation Plan: We will start on a prednisone taper. Reviewed risks and benefits and adverse effects of this medication. She will follow up if no improvement or if anything worsens or changes. Medications: New amoxicillin-pot clavulanate 875-125 mg 1 tab PO Q12H 20 tabs 0RF prednisone take 3 tab po x 3 days, take 2 tab po x 3 days, 1 tab po x 3 days 18 tabs 0RF amoxicillin-pot clavulanate 875-125 mg 1 tab PO Q12H 20 tabs 0RF prednisone take 3 tab po x 3 days, take 2 tab po x 3 days, 1 tab po x 3 days 18 tabs 0RF
== END ==
LOC: HO.HMCFM 15:37
PROVIDERS: PCP Family Medicine; Visit Provider Physician Assistant
DX: J32.9 Chronic sinusitis, unspecified (principal); B96.89 Other specified bacterial agents as the cause of diseases classified elsewhere; E11.9 Type 2 diabetes mellitus without complications; J45.901 Unspecified asthma with (acute) exacerbation

== ENCOUNTER 2024-09-27 14:30 | Outpatient (AMB) | payer OTHER, SELFPAY ==
--- NOTE | 2024-09-27 14:43 | MHC.PC.OV ---
Vital Signs 09/27/24 14:46 Height 5 ft 6 in Weight 199 lb BMI 32.1 BP 120/70 Blood Pressure Location Lt brachial Position Sitting Respiration 14 Pulse 89 Pulse Source Pulse Oximeter Temp 98.4 F Temp Source Oral Pulse Oximetry (%) 96 Oxygen Delivery Method Room Air Intake Visit Reasons: f/u diabetes, hypertension Intake Note: dm and htn follow up Allergies No Known Allergies Allergy (Verified 09/27/24 14:44) Tobacco use date assessed: 02/18/24 Dental Screening Dental Screen Date: 11/18/23 HPI f/u diabetes, hypertension HPI Details 63 y/o female presents to f/u diabetes, hypertension. A1c today 09/27/24 6.1%. She is on metformin 500mg b.i.d, semaglutide 2mg. Blood pressure today 120/70, 89p. She is on losartan-HCTZ 100-25mg daily. She keeps up the active lifestyle/exercise. HPI Comments History of Present Illness Details Documentation assistance for Kenneth Montalvo MD, was provided by Shantanu Strickland,? Telephone Coin Box Collector on 09/27/2024 at 3:11 PM EST. I, Dr. Montalvo, have read, observed, and verified documentation. ?? 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 1. Little interest or pleasure in doing things: nearly every day 2. Feeling down, depressed, or hopeless: not at all 3. Trouble falling or staying asleep, or sleeping too much: not at all 4. Feeling tired or having little energy: not at all 5. Poor appetite or overeating: not at all 6. Feeling bad about yourself - or that you are a failure or have let yourself or your family down: not at all 7. Trouble concentrating on things, such as reading the newspaper or watching television: not at all 8. Moving or speaking so slowly that other people could have noticed. Or the opposite - being so fidgety or restless that you have been moving around a lot more than usual: not at all 9. Thoughts that you would be better off or of hurting yourself in some way: not at all Total score: 3 Source: Developed by Drs. Melo Hunter, Ana Herrera, Asael Brown and colleagues, with an educational tamika from [employer]. Thrive Questionnaire Date Thrive assessed: 11/18/23 I am a: Patient What is your living situation today?: I have a steady place to live Within the past 12 months, did the food you bought not last and you didn't have the money to get more?: Sometimes True Within the past 12 months, did you worry whether your food would run out before you got money to buy more?: Never true Do you have trouble paying for medicines?: Yes Do you have trouble getting transportation to medical appointments?: No Do you have trouble paying your heating and electricity bill?: Yes Do you have trouble taking care of your child, family member or friend?: No Do you have trouble with day-to-day activities such as bathing, preparing meals, shopping, managing finances, etc.?: No Are you currently unemployed and looking for a job?: No Are you interested in more education?: No Please select the resources that you would like help with: Food and Utilities Currently or been in a relationship where the following occur: No concerns reported THRIVE Score: 2 AUDIT C Alcohol Use Questionnaire (AUDIT-C) 1. How often do you have a drink containing alcohol?: 2-4 times a month 2. How many drinks containing alcohol do you have on a typical day when you are drinking?: 1 or 2 3. How often do you have six or more drinks on one occasion?: Never Total Score: 2 JAYNE-7 AMB Questionnaire JAYNE-7 Date JAYNE - 7 assessed: 11/18/23 Feeling nervous, anxious, or on edge: 0 = Not at all Not being able to stop or control worryin = Not at all Worrying too much about different things: 0 = Not at all Trouble relaxin = Not at all Being so restless that it is hard to sit still: 0 = Not at all Becoming easily annoyed or irritable: 0 = Not at all Feeling afraid as if something awful might happen: 0 = Not at all Total JAYNE-7 score (0-4 normal; 5-9 mild; 10-14 moderate; 15-21 severe): 0 Source: Developed by Drs. Melo Hunter, Ana Herrera, Asael Brown and colleagues, with an educational tamika from [employer]. Review of Systems Const Denies chills, Denies fatigue, Denies fever(s), Denies headache(s) and Denies weakness ENT Denies dizziness and Denies headache(s) Card Denies dyspnea Resp Denies cough, Denies dyspnea, Denies wheezing and Denies other (shortness of breath) Musc Denies numbness and Denies tingling Neuro Denies dizziness, Denies headache(s), Denies numbness, Denies tingling and Denies weakness Psych Denies anxiety and Denies depression Endo Denies fatigue Aller/Immun Denies wheezing Physical exam (Primary Care) Vital Signs: Last Vital Signs Temp 98.4 F 09/27/24 14:46 Pulse 89 09/27/24 14:46 Resp 14 09/27/24 14:46 BP 120/70 09/27/24 14:46 Pulse Ox 96 09/27/24 14:46 Oxygen Delivery Method Room Air 09/27/24 14:46 BMI result Body Mass Index 32.1 Tobacco/Smoking Status: Tobacco use Status Tobacco use date assessed 02/18/24 09/27/24 14:50 Patient Tobacco Use Status Never used Tobacco 09/27/24 14:50 e-Cigarette/Vaping Use Never Used 09/27/24 14:50 PHQ-9: PHQ-9 Score PHQ-9: Total score 3 09/27/24 14:50 Thrive Assessment: Date of Thrive Assessment Date Thrive assessed 11/18/23 09/27/24 14:50 Currently or been in a relationship where the following occur: No concerns reported Const General: well developed; No acute distress Nutritional Appearance: well nourished Orientation/consciousness: patient oriented x3 [facility] Head: Yes normocephalic and Yes atraumatic Eyes General: appearance normal, both eyes and all related structures Pupils: Equal, round and reactive pupils present EOM: EOMs intact bilaterally Resp Effort & Inspection: normal respiratory effort Auscultation: clear to auscultation bilaterally Cardio Rate: regular rate Rhythm: regular rhythm Heart sounds: S1 normal heart sound present, S2 normal heart sound present, no gallops, no murmurs and no rubs Neuro General: patient oriented x3 and gait normal Cranial nerves: Yes Equal, round and reactive pupils present Psych Affect: normal affect Coding Level of Care Code Est Pt Level 4 (18315) Diagnoses T2DM (type 2 diabetes mellitus) E11.9 Hypertension I10 Immunization counseling Z71.85 Assessment & Plan Assessment & Plan (1) T2DM (type 2 diabetes mellitus): Code(s): E11.9 - Type 2 diabetes mellitus without complications Category: Medical Plan: A1c?increased?to?6.1%.??Still?good?control.??Goal?is?less?than?7.0% Continue?current?medication?regimen Patient?notes?that?she?has?a?new?insurance?and?was?told?she?needs?a?prior?authorization?for?Ozempic. We?are?in?the?process?of?getting?prior?authorization.??I?did?discuss?with?her?that?sometimes?this?is?a?challenge?depending?on?insurance?company?and?that?if?there?is?any?lapse?in?her?medication?she?should?increase?her?metformin?from?500?mg?b.i.d., ?up?to?750?mg?b.i.d. hopefully?that?will?not?be?necessary?and?she?will?get?Ozempic?as?prescribed. (2) Hypertension: Code(s): I10 - Essential (primary) hypertension Category: Medical Plan: Blood?pressure?is?well?controlled?on?diltiazem?and?losartan?hydrochlorothiazide Continue?her?medication?regimen (3) Immunization counseling: Code(s): Z71.85 - Encounter for immunization safety counseling Category: Medical Plan: Patient?inquires?about?RSV?vaccine. She?is?63?years?old.??She?has?a?increased?risk?due?to?diabetes?and?also?asthma. Recommended?RSV?shot?which?she?can?get?at?her?pharmacy. Orders: Orders Comprehensive [place]. Panel Fast Today Z00.00 - Encounter for general adult medical examination without abnormal findings Lipid Panel Today Z00.00 - Encounter for general adult medical examination without abnormal findings Microalbumin, Random (w Creat) Today I10 - Essential (primary) hypertension Complete Blood Count Auto Diff Today Z00.00 - Encounter for general adult medical examination without abnormal findings UA and rflx microscopic Today Z00.00 - Encounter for general adult medical examination without abnormal findings TSH reflex Free T4 Today Z00.00 - Encounter for general adult medical examination without abnormal findings
[2024-09-27 14:46] VITALS: BP 120/70; PULSE 89; RESP 14; TEMP 36.9; O2SAT 96; BMI 32.1
== END 2024-09-27 15:13 | disposition home or self-care (01) ==
PROVIDERS: PCP Family Medicine; Visit Provider Family Medicine
DX: E11.9 Type 2 diabetes mellitus without complications (principal); I10 Essential (primary) hypertension; Z71.85 Encounter for immunization safety counseling

== ENCOUNTER → 2024-09-27 14:30 | Outpatient (BNVA) | payer SELFPAY | PROVIDERS: PCP Family Medicine; Visit Provider Family Medicine | DX: E11.9 Type 2 diabetes mellitus without complications (principal); I10 Essential (primary) hypertension; Z79.84 Long term (current) use of oral hypoglycemic drugs; Z79.899 Other long term (current) drug therapy; Z71.85 Encounter for immunization safety counseling | CPT/HCPCS: 83036; 96127 ==

== ENCOUNTER 2024-12-14 15:00 | Outpatient (AMB) | payer BC, SELFPAY ==
--- NOTE | 2024-12-14 15:02 | A.OFFPC_ITS ---
Vital Signs 3 12/14/24 15:13 Height 5 ft 6 in Weight 203 lb 2 oz BMI 32.8 BP 135/78 Blood Pressure Location Rt brachial Position Sitting Respiration 16 Pulse 94 Pulse Source Pulse Oximeter Temp 98.1 F Temp Source Oral Pulse Oximetry (%) 98 Oxygen Delivery Method Room Air Intake Visit Reasons: cpe Intake Note: patient here for CPE and she refuses to answer any of the questions. Decision Science Analyst Required: No Is last menstrual period known: No Post menopausal: No Patient : No Allergies No Known Allergies Allergy (Verified 12/14/24 15:21) Medication List - Last Reconciled 12/14/24 by Loretta Justice, BOILER/CHILLER TECHNICIAN- albuterol sulfate 90 mcg/actuation (ProAir HFA) 2 puffs inhalation Q4-6H PRN blood sugar diagnostic (OneTouch Ultra Test strips) As directed, 90 days blood sugar diagnostic (FreeStyle Lite Strips) DX: E11.9, test blood sugar 2 times a day, 90 days blood-glucose meter (Beehive IndustriesTouch Ultra2 Meter) As directed blood-glucose meter (FreeStyle Lite Meter kit) DX: E11.9, test blood sugar as directed, 999 days blood-glucose sensor (Dexcom G7 Sensor device) As directed blood-glucose,dairy grazer,cont (Dexcom G7 Ux Architect) As directed budesonide 180 mcg/actuation (Pulmicort Flexhaler) 2 inhalations inhalation QAM 30 days bupropion HCl XL 300 mg PO QAM 90 days diltiazem HCl ER 240 mg PO DAILY ibuprofen 800 mg PO BID PRN 30 days lancets (Beehive IndustriesTouch UltraSoft 2 Lancet) As directed, 90 days lancets (FreeStyle Lancets) Test blood sugar 2 times a day. 90 days losartan-hydrochlorothiazide 100-25 mg 1 tab PO DAILY metformin 500 mg PO BID 90 days pravastatin 10 mg PO DAILY 90 days prednisone take 3 tab po x 3 days, take 2 tab po x 3 days, 1 tab po x 3 days semaglutide 2 mg (0.75 mL) subcut QWEEK 84 days Tobacco use date assessed: 12/14/24 Last assessed Fall Risk: 12/14/24 Dental Screening Dental Screen Date: 11/18/23 HPI HPI Comments 2 History of Present Illness0 Details 64-year-old female with hypertension, hy perlipidemia, type 2 diabetes, moderate persistent asthma, PVD Family hx: Negative history for cancer in the family, Positive for cardiac conditions Social: Denies tobacco or alcohol use Health maintenance: Mammo 11/2024 @ [facility] - report requestd DEXA 2020 normal Cologaurd re-ordered, last done 2021 negative. Flu - UTD Tdap 2022 Optho 04/2024 in [place] - report reviewed, negative for diabetic retinopathy Specialists: derm appt january The patient is a 64-year-old female presenting for a wellness physical examination & chronic dz mgmt - The patient has Type 2 Diabetes [facility], treated with Metformin and Ozempic, showing a most recent A1c of 7.8% from September 27, 2024. Blood glucose levels observed high in the morning, consistently between 100-123 mg/dL. Not using CGM - The patient has a history of Dyslipide quinton managed on Pravastatin. - Essential Hypertension has been under control with Diltiazem and hydrochlorothiazide-losartan - Asthma: Has a prescription for Pulmic ort however this is causing her several 100 dollars per month, she was requesting an alternative. She has PRN albuterol she is up-to-date on her vaccinations - The patient is experiencing gastrointe stinal symptoms such as abdominal cramping, mimicking menstrual symptoms and occurring fortnightly, starting 6 months ago, radiates into her transverse lower back. She was constipation mixed with diarrhea. No blood in her stools. No unintentional weight changes. Feels overall bloated but in her upper abdomen. The patient lacks a recent colonoscopic review, relying instead on a previously twice-attempted Cologuard. - Reports urinary symptoms potentially i mplying a UTI, potentially associated with Ozempic. ROS: - Cardiovascular: Denies chest pain, martina rtness of breath. - Gastrointestinal: Reports cramps simil ar to menstrual pains, intermittent constipation or diarrhea. - Respiratory: Denies cough, reports use of inhaler for asthma. - Endocrine: Reports normal blood sugar monitoring, AM highs; denies hypoglycemic events. - Urinary: Reports urinary symptoms, but insufficient urine analysis sample. Exam: General: Well developed, well nourished, in no acute distress. Appears stated age. Head: Normocephalic, atraumatic. Eyes: Pupils are equal, round and reactive to light and accommodation. Conjunctivae are clear. Ears: TMs clear AU, EACS WNL Nose: Patent, without discharge. Mouth: There are no ulcers or lesions noted. No inflammation, no post nasal drip, no plaques nor exudates. Mild erythema noted in her pharynx Neck: Supple, no adenopathy , ? thyromegaly w/o pain or trachea deviation Lungs: Clear to auscultation bilaterally. No rales, rhonchi or wheeze noted. Good air flow in all estrada. Heart: Regular rate and rhythm. No murmurs, click, rubs or gallops are noted. Abdomen: Bowel sounds present in all quadrants. The abdomen is soft, nontender, with no masses or organomegaly noted. No hernias are noted. Musculoskeletal: Joints are nontender, without swelling, redness, or effusions. Range of motion is observed to be normal. Pulses: Peripheral pulses are equal and palpable bilaterally decreased. Hairless lower ext. LLE w/ open area - see picture. Unable to perform foot exam today. Extremities: No clubbing, cyanosis nor edema is noted. Neurologic: Gait and station normal. Cranial Nerves 2-12 intact. Motor strength grossly symmetrical and intact. No sensory loss. Balance normal. Skin: No rashes. Turgor is good. Skin color is good. Hair and nails are without abnormalities. She has several scattered skin lesions on arms and trunk anterior and posterior. She has scabs on R upper arm that started 2 weeks ago; see picture Psych: Normal eye contact, affect and mood appropriate, and normal interactions. Patient is alert and appropriate to context. Results She reports that she had all of the labs ordered by her primary care provider done at [facility] or [facility]. Unfortunately I do not have these results available to me today. The patient was made aware that I will locate the labs and review. Discussion I explained to the patient the importance of monitoring both her blood glucose levels and lipid profiles to manage her type 2 diabetes and dyslipidemia optimally. The repeat A1c should be drawn after December 27 for insurance compliance. The lipid panel will also be readdressed during the upcoming lab scheduling to ascertain current dyslipidemia management success. Continuing hypertension management should remain a priority due to its contribution to cardiovascular risk. Regarding asthma, the transition to [facility] should adhere to insurance guidance, ensuring no discontinuity in her asthma management. The gastrointestinal symptoms, require further evaluation. We considered a future colonoscopy given ongoing intestinal symptoms, with cologuard pending result coordination. Notably, recent exams like the mammogram require integration with past health data. Overall, we planned for frequent communication to review forthcoming lab analyses and subsequent process adjustments, recognizing her insurance requirements' constraints. Plan: Get labs I reviewed chart; no imaging avail to me She gets a lot of her stuff done at [facility] will have to request staff to get some records if any on ABD Stop pulmicort start arnuity d/t insurance otherwise cont all other meds until labs are reviewed will have to consider if metformin or ozempic are causing or contributing to her GI complaints Get skin areas evaled by derm need to do foot exam at next visit; if area to lle cont, consider vascular referral/workup. she states this was a known traumatic event recently. close iterim fu in 3 weeks w/ repeat labs to include a1c; new: lipase, amylase. An additional 45 minutes was spent addressing the problem(s) noted at todays visit. This includes time spent before the visit reviewing the chart, time spent during the visit, and time spent after the visit on documentation reviewing laboratory results, diagnostic imaging, medications, performing a medically necessary evaluation, counseling on diagnoses, care coordination, ordering appropriate tests, ordering appropriate medications, review of tests performed by other providers, reporting test results with the patient, communication with other healthcare providers. [facility] Medical History (Updated 12/14/24 @ 17:39 by Loretta Justice, [facility]) Anxiety Arthritis Asthma Depression Eczema High cholesterol History of mammogram (~2023) Sinusitis Surgical History H/O tubal ligation History of tonsillectomy Family History Mother High blood pressure Diabetes Father High blood pressure Sister High blood pressure Diabetes Substance abuse Mental health disorder Child No Financial Resp Mental health disorder Social History Housing: House Patient Tobacco Use Status: Never used Tobacco e-Cigarette/Vaping Use: Never Used Second Hand Smoke Exposure: No service: No Current occupational status: employed 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 Cognitive needs: No Hearing needs: No Vision needs: No Questionnaire Thrive Questionnaire Date Thrive assessed: 09/27/24 I am a: Patient What is your living situation today?: I have a steady place to live Within the past 12 months, did the food you bought not last and you didn't have the money to get more?: Sometimes True Within the past 12 months, did you worry whether your food would run out before you got money to buy more?: Never true Do you have trouble paying for medicines?: Yes Do you have trouble getting transportation to medical appointments?: No Do you have trouble paying your heating and electricity bill?: Yes Do you have trouble taking care of your child, family member or friend?: No Do you have trouble with day-to-day activities such as bathing, preparing meals, shopping, managing finances, etc.?: No Are you currently unemployed and looking for a job?: No Are you interested in more education?: No Currently or been in a relationship where the following occur: No concerns reported THRIVE Score: 2 JAYNE-7 AMB Questionnaire JAYNE-7 Date JAYNE - 7 assessed: 11/18/23 Source: Developed by Drs. Melo Hunter, Ana Herrera, Asael Brown and colleagues, with an educational tamika from [employer]. Physical exam (Primary Care) Vital Signs: Last Vital Signs Temp 98.1 F 12/14/24 15:13 Pulse 94 12/14/24 15:13 Resp 16 12/14/24 15:13 BP 135/78 12/14/24 15:13 Pulse Ox 98 12/14/24 15:13 Oxygen Delivery Method Room Air 12/14/24 15:13 BMI result Body Mass Index 32.8 BMI Assessment/Plan discussion: High BMI High, discussed plan: lifestyle Tobacco/Smoking Status: Tobacco use Status Tobacco use date assessed 12/14/24 12/14/24 15:16 Patient Tobacco Use Status Never used Tobacco 12/14/24 15:04 e-Cigarette/Vaping Use Never Used 12/14/24 15:04 Thrive Assessment: Date of Thrive Assessment Date Thrive assessed 09/27/24 12/14/24 15:04 Currently or been in a relationship where the following occur: No concerns reported Coding Level of Care Code Est Pt Level 5 (26843) Est Pt Prev Care 40-64y(21907) Diagnoses Encounter for general adult medical examination with abnormal findings Z00.01 Hypertension due to endocrine disorder I15.2 Hypertension type: secondary to endocrine disorders High cholesterol E78.00 Type 2 diabetes mellitus with other specified complication, without long-term current use of insulin E11.69 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 insulin use: without asphalt heater operator use Diabetes mellitus complication status: with other specified complication Abdominal cramping R10.9 Obesity (BMI 30-39.9) E66.9 PVD (peripheral vascular disease) I73.9 Screening for colon cancer Z12.11 Moderate persistent asthma without complication J45.40 Asthma severity: moderate Asthma persistence: persistent Asthma complication type: uncomplicated Assessment & Plan Assessment & Plan (1) Encounter for general adult medical examination with abnormal findings: Code(s): Z00.01 - Encounter for general adult medical examination with abnormal findings Category: Medical (2) Hypertension: Code(s): I10 - Essential (primary) hypertension Category: Medical Qualifiers: Hypertension type: secondary to endocrine disorders Qualified Code(s): I15.2 - Hypertension secondary to endocrine disorders (3) High cholesterol: Code(s): E78.00 - Pure hypercholesterolemia, unspecified Category: Medical (4) T2DM (type 2 diabetes mellitus): Code(s): E11.9 - Type 2 diabetes mellitus without complications Category: Medical Qualifiers: Diabetes mellitus retirement insulin use: without asphalt heater operator use Diabetes mellitus complication status: with other specified complication Qualified Code(s): E11.69 - Type 2 diabetes mellitus with other specified complication (5) Abdominal cramping: Code(s): R10.9 - Unspecified abdominal pain Category: Medical (6) Obesity (BMI 30-39.9): Code(s): E66.9 - Obesity, unspecified Category: Medical (7) PVD (peripheral vascular disease): Comment: Based on clinical exam on statin manage BP, cholesterol and glucose consider referral to Vascular Code(s): I73.9 - Peripheral vascular disease, unspecified Category: Medical (8) Screening for colon cancer: Code(s): Z12.11 - Encounter for screening for malignant neoplasm of colon Category: Medical (9) Asthma: Code(s): J45.909 - Unspecified asthma, uncomplicated Category: Medical Qualifiers: Asthma severity: moderate Asthma persistence: persistent Asthma complication type: uncomplicated Qualified Code(s): J45.40 - Moderate persistent asthma, uncomplicated Plan . Orders: Orders 2 Amylase Today R10.9 - Unspecified abdominal pain Hemoglobin A1c Today E11.9 - Type 2 diabetes mellitus without complications Microalbumin, Random (w Creat) Today I10 - Essential (primary) hypertension Lipase Today R10.9 - Unspecified abdominal pain Referrals 2 Cologuard Test Z12.11 - Encounter for screening for malignant neoplasm of colon, Z12.12 - Encounter for screening for malignant neoplasm of rectum Medications: New 2 fluticasone furoate 100 mcg/actuation (Arnuity Ellipta) 1 inh inhalation DAILY 30 ea 12RF Refilled 2 metformin 500 mg PO BID 90 days 180 tabs 0RF pravastatin 10 mg PO DAILY 90 days 90 tabs 3RF blood sugar diagnostic (FreeStyle Lite Strips) DX: E11.9, test blood sugar 2 times a day, 90 days 200 ea 4RF E11.9 - Type 2 diabetes mellitus without complications lancets (FreeStyle Lancets) Test blood sugar 2 times a day. 90 days 200 ea 4RF DX: E11.9, test blood sugar 4 times a day, 90 day E11.9 - Type 2 diabetes mellitus without complications losartan-hydrochlorothiazide 100-25 mg 1 tab PO DAILY 90 tabs 3RF Discontinued 2 blood-glucose meter (OneTouch Ultra2 Meter) Discontinued Reason: Patient no longer taking As directed 1 ea 0RF E11.9 - Type 2 diabetes mellitus without complications lancets (OneTouch UltraSoft 2 Lancet) Discontinued Reason: Patient no longer taking As directed, 90 days 100 ea 3RF E11.9 - Type 2 diabetes mellitus without complications blood-glucose sensor (Dexcom G7 Sensor device) Discontinued Reason: Patient no longer taking As directed 2 ea 3RF monitor blood sugar E11.9 - Type 2 diabetes mellitus without complications blood sugar diagnostic (OneTouch Ultra Test strips) Discontinued Reason: Patient no longer taking As directed, 90 days 100 ea 3RF E11.9 - Type 2 diabetes mellitus without complications blood-glucose,dairy grazer,cont (Dexcom G7 Ux Architect) Discontinued Reason: Patient no longer taking As directed 1 ea 0RF monitor blood sugar E11.9 - Type 2 diabetes mellitus without complications prednisone Discontinued Reason: Patient Completed Course take 3 tab po x 3 days, take 2 tab po x 3 days, 1 tab po x 3 days 18 tabs 0RF budesonide 180 mcg/actuation (Pulmicort Flexhaler) Discontinued Reason: Insurance Denied 2 inhalations inhalation QAM 30 days 1 ea 4RF
[2024-12-14 15:13] VITALS: BP 135/78; PULSE 94; RESP 16; TEMP 36.7; O2SAT 98; BMI 32.8
== END 2024-12-14 15:56 | disposition home or self-care (01) ==
LOC: HO.HMCFM 15:01
PROVIDERS: PCP Family Medicine; Visit Provider Nurse Practitioner Family
DX: Z00.01 Encounter for general adult medical examination with abnormal findings (principal); I15.2 Hypertension secondary to endocrine disorders; E78.00 Pure hypercholesterolemia, unspecified; E11.69 Type 2 diabetes mellitus with other specified complication; R10.9 Unspecified abdominal pain; E66.9 Obesity, unspecified; I73.9 Peripheral vascular disease, unspecified; Z12.11 Encounter for screening for malignant neoplasm of colon; J45.40 Moderate persistent asthma, uncomplicated

== ENCOUNTER 2024-12-14 15:00 | Outpatient (REF) | payer BC, SELFPAY ==
--- OUTSIDE RECORDS SUMMARY | 2024-12-14 17:44 | XMS_ITS | Data Portability ---
Author Organization [facility], [facility] Address [address] [place] [address] Assessment No assessment recorded. Plan of Treatment Reminders Order Date Submit Date Provider Last Modified By Organization Details Last Modified Time Details Appointments RECHECK 15 2024 03:15P M Jatin Eldridge PA-C Not available Not available Not available Lab None recorded . Referral None recorded . Procedures None recorded . Surgeries None recorded . Imaging None recorded . Medication Orders None recorded . Patient TargetsNo targets recorded. Patient InstructionsNo instructions recorded. Reason for Referral None Reported. Problems Name Problem SNOMED Code Status Onset Date Resolution Date Notes Provider Name and Address Organization Details Recorded Time No complaints 701112617 Active Status: 'I'; Not Available [facility] 4 09:13:11 Osteoarthri tis of knee 234561789 Active 2023 Seferino Dooley PA-C [address], [place], [address] , [facility] 4 08:44:54 Idiopathic osteoarthri tis 311395411 Active 2018 Problem Code: M17.0; Problem Code Type: ICD-10; Status: 'A'; Not Available [facility] 4 11:13:04 Problem Notes None recorded. Procedures Surgical History Date Name Laterality Status Provider Name and Address Organization Details Recorded Time 5 Knee Kenalog 40 1cc Injection, Bilateral completed Jatin Eldridge PA-C [address], [place], [address], [facility] 09/21/2024 16:47:14 4 Knee Kenalog 40 1cc Injection, Bilateral completed Jatin Eldridge PA-C [address], [place], [address], [facility] 06/13/2024 12:39:01 4 Knee Kenalog 40 1cc Injection, Bilateral completed Jatin Eldridge PA-C [address], [place], [address], [facility] 02/01/2024 07:49:49 Imaging Results None recorded. Procedure Notes None recorded. Medical Equipment None Reported. Allergies No known drug allergies Medications Name Sig Start Date Stop Date Status Note LastModified by Organization Details LastModified Time fluconazole 100 mg tablet TAKE 1 TABLET NOW MAY REPEAT IN 72 HOURS IF SYMPTOMS PERSISTS active Not Available Not Available No t Available metformin 500 mg tablet TAKE ONE TABLET BY MOUTH TWICE A DAY active Not Available Not Available No t Available diltiazem ER (XR/XT) 240 mg capsule,exte nded release 24 hr, controlled active Not Available Not Available N ot Available ibuprofen 800 mg tablet TAKE ONE TABLET BY MOUTH EVERY 8 HOURS NEEDED FOR PAIN FOR ARTHRITIS TAKE WITH FOOD OR MILK active Not Available Not Available No t Available diltiazem CD 240 mg capsule,exte nded release 24 hr TAKE ONE CAPSULE BY MOUTH EVERY DAY active Not Available Not Available No t Available metronidazol e 500 mg tablet TAKE ONE TABLET BY MOUTH TWICE A DAY FOR 7 DAYS - NO ALCOHOL WHILE TAKING THIS active Not Available Not Available Not Available triamcinolon e acetonide 0.1 % topical cream APPLY TOPICALLY ONCE DAILY FOR 14 DAYS active Not Available Not Available Not Available losartan 100 mg-hydrochlo rothiazide 25 mg tablet TAKE 1 TABLET BY MOUTH EVERY DAY active Not Available Not Available No t Available pravastatin 10 mg tablet TAKE ONE TABLET BY MOUTH EVERY DAY active Not Available Not Available No t Available OneTouch Ultra Test strips USE DIRECTED ONCE DAILY active Not Available Not Available N ot Available econazole nitrate 1 % topical cream APPLY TO AFFECTED AREAS ON THE FEET TWICE DAILY UNTIL IMPROVED THEN ONCE WEEKLY FOR MAINTENANCE active Not Available Not Available Not Available clotrimazole -betamethaso ne 1 %-0.05 % topical cream APPLY TO AFFECTED AND SURROUNDING AREAS OF SKIN TOPICALLY TWO TIMES A DAY IN THE MORNING AND IN THE EVENING FOR 2 WEEKS active Not Available Not Available No t Available fluocinonide 0.05 % topical cream APPLY TO THE HANDS AND LEGS TWO TIMES A DAY FOR 2 WEEKS, BREAK ONE WEEK. REPEAT NEEDED FOR FLARES active Not Available Not Available No t Available losartan 100 mg tablet TAKE ONE TABLET BY MOUTH EVERY DAY active Not Available Not Available No t Available metformin ER 500 mg tablet,exten ded release 24 hr TAKE ONE TABLET BY MOUTH EVERY DAY active Not Available Not Available No t Available bupropion HCl XL 300 mg 24 hr tablet, extended release TAKE ONE TABLET BY MOUTH EVERY DAY IN THE MORNING active Not Available Not Available No t Available Flovent HFA 110 mcg/actuatio n aerosol inhaler INHALE 2 PUFFS TWO TIMES A DAY. RINSE MOUTH AND THROAT AFTER USE. active Not Available Not Available N ot Available diclofenac 1 % topical gel APPLY TOPICALLY FOUR TIMES DAILY active Not Available Not Available No t Available OneTouch Ultra2 Meter USE DIRECTED active Not Available Not Available No t Available OneTouch Delica Plus Lancet 30 gauge USE DIRECTED DAILY active Not Available Not Available No t Available Tiadylt ER 240 mg capsule,exte nded release TAKE ONE CAPSULE BY MOUTH EVERY DAY active Not Available Not Available No t Available Ozempic 1 mg/dose (4 mg/3 mL) subcutaneous pen injector active Not Available Not Available Not Available Ozempic 2 mg/dose (8 mg/3 mL) subcutaneous pen injector active Not Available Not Available Not Available Dexcom G7 [employer] Handicapper FOR MONITORING BLOOD SUGAR DIRECTED active Not Available Not Available Not Available Dexcom G7 Sensor device FOR MONITORING BLOOD SUGAR DIRECTED active Not Available Not Available Not Available Ozempic 0.25 mg or 0.5 mg (2 mg/3 mL) subcutaneous pen injector INJECT 0.5MG UNDER THE SKIN EVERY WEEK active Not Available Not Available N ot Available Vitals Date Recorded Body height Body mass index (BMI) Body weight Provider Name and Address Organization Details Last Updated DateTime 02/01/2024 167.64 cm 34.7 kg/m2 85317.36 g ALISSA DELEON [facility] 02/01/2024 10:37:21 Date Recorded Body height Provider Name an d Address Organization Details Last Updated DateTime 06/13/2024 167.64 cm MARLI LEMOS [facility] 06/13/2024 13:04:26 Date Recorded Body height Provider Name an d Address Organization Details Last Updated DateTime 09/21/2024 167.64 cm MARLI LEMOS [place] [facility] [place] [facility] 09/21/2024 15:31:20 Social History None recorded. Functional Status None recorded. Mental Status None recorded. Family History Nothing Reported. Medical History No medical history recorded. Gynecological HistoryNo gynecological history recorded. Obstetrics History GPAL:G 0 P 0 0 0 0 Past Encounters Encounter ID Performer Location Encounter Start Date Encounter Closed Date Diagnosis/Indication Diagnosis SNOMED-CT Code Diagnosis ICD10 Code Diagnosis Note [id number] [facility] [address] [place] [address] 02/01/2024 10:17:55 02/23/2024 10:32:36 Osteoarthritis of left knee joint 9640918513 65901 M17.12 Pain of ri ght knee joint 2700090955 55550 M25.942 [id number] [facility] [address] [place] [address] 06/13/2024 13:00:33 07/06/2024 09:02:31 Osteoarthritis of knee 724023815 M17.11 Arthritis of left knee 9321623384 617283 M13.073 [id number] [facility] [address] [place] [id number] 09/21/2024 15:24:59 10/04/2024 08:28:05 Osteoarthritis of right knee joint 2879622533 23326 M17.11 Osteoarthr itis of left knee joint 3234672256 15631 M17.12 Health Concerns Section Related Observation LastModified by Organization Detai ls LastModified Time None Recorded Concern Status LastModified by Organization Details LastModified Time None Recorded Advance Directives Directive None Recorded Payers Encounter Date Sequence Insurance Name Policy Number Policy Garduno Covered Member ID Garduno Member ID Guarantor Name 02/01/2024 1 [employer] [id number] Rose horn Espinoza [id number] Tevin Espinoza 06/13/2024 1 [employer] [id number] Rose horn Espinoza [id number] Tevin Espinoza 09/21/2024 1 [place]: BCEVELYN (PPO) [id number] Tevin Espinoza [id number] Tevin Espinoza Notes Date Note Type Note Provider Name and Address Organization Details Recorded Time 02/01/2024 text/html I am seeing the patient today under the supervision of {{Ashley Tobias*}} who was available but who did not see the patient. Chief Complaint The patient presents today for recheck of bilateral knee osteoarthritis. Is known to have knee arthritis treated conservatively to this point with {{1 2* 3}} months relief of symptoms. Presents today for recheck secondary to increased knee pain. History of Present Illness ? ? Allergy list reviewed ? ? Medication list reviewed Past Medical/Surgical History Reviewed today, otherwise unchanged per intake sheet. Physical Findings General Appearance: ?? Well developed. ?? In no acute distress. Musculoskeletal System: Knee: General/bilateral: ?? No laxity of the knee. Right Knee: ? ? Medial aspect was tender on palpation. ?? No erythema. ?? No warmth. Left Knee: ? ? Medial aspect was tender on palpation. ?? No erythema. ?? No warmth. Musculoskeletal Scales: General/bilateral: ? ? Mild effusion noted. Neurological: ?? Oriented to time, place, and person. Gait And Stance: ?? Normal. Psychiatric: ?? Mood was appropriate to the affect. Left knee 0-120 degrees of flexion with discomfort. Right knee 0-120 degrees of flexion with discomfort. Assessment ? ? Osteoarthritis of knee -bilateral knees Plan More than 50% of todays visit was spent on direct patient counseling regarding their knee condition and treatment options both operative with knee arthroplasty and non-operative, including oral medications and injection therapy. After discussion, my clinical decision was to go forth with an intra-articular cortisone injection. After explaining risks and benefits, under meticulous aseptic technique, each knee was injected with, 1cc of Kenalog 40mgs and 4 cc of Marcaine 1/4%. They tolerated the procedures well. Post injection precautions reviewed. Follow up with us in 3 months for further discussion of total knee replacement surgery versus continued conservative treatment. Jatin Eldridge PA-C [address] [place] [address] [address], [place], [address], [facility] 02/01/2024 12:13:32 06/13/2024 text/html I am seeing the patient today under the supervision of Dr. Sindhu Mendoza}}who was available but who did not see the patient. Chief ComplaintThe patient presents today for follow-up evaluation regarding the {{Left Right Bilateral* }} knee osteoarthritis. Is known to have knee arthritis treated conservatively to this point with relief of symptoms. Past Medical/Surgical HistoryReviewed today, otherwise unchanged per intake sheet. Physical FindingsGeneral Appearance: Mild antalgic gait Knee exam findings note: restrictions are range of motion with pain at extremes, tenderness to palpation involving medial and lateral compartment with mild crepitance, trace effusion, extensor mechanism intact, no instability. Assessment? ? Osteoarthritis of {{Left Right Bilateral* }} knee PlanI discussed with the patient today regarding their knee condition to include all treatment options, conservation and operative, to include total knee replacement surgery which after further discussion, the patient does not wish to pursue any type of operative intervention. In regards to the patient's knees today, I have recommended continued conservative treatment with use of tylenol, possible use of antiinflammatories as well as possibility of intraarticular cortisone injections for which they wish to go forth with. Follow up with us in 3 months for further discussion of total knee replacement surgery versus continued conservative treatment. Jatin Eldridge PA-C [address] [facility] [address], [place], [address], [facility] 06/16/2024 10:25:43 09/21/2024 text/html I am seeing the patient today under the supervision of Dr. Sindhu Mendoza}}who was available but who did not see the patient. Chief ComplaintThe patient presents today for follow-up evaluation regarding the {{Left Right Bilateral* }} knee osteoarthritis. Is known to have knee arthritis treated conservatively to this point with relief of symptoms. Past Medical/Surgical HistoryReviewed today, otherwise unchanged per intake sheet. Physical FindingsGeneral Appearance: Mild antalgic gait Knee exam findings note: restrictions are range of motion with pain at extremes, tenderness to palpation involving medial and lateral compartment with mild crepitance, trace effusion, extensor mechanism intact, no instability. Assessment? ? Osteoarthritis of {{Left Right Bilateral* }} knee PlanI discussed with the patient today regarding their knee condition to include all treatment options, conservation and operative, to include total knee replacement surgery which after further discussion, the patient does not wish to pursue any type of operative intervention. In regards to the patient's knees today, I have recommended continued conservative treatment with use of tylenol, possible use of antiinflammatories as well as possibility of intraarticular cortisone injections for which they wish to go forth with. Follow up with us in 3 months for further discussion of total knee replacement surgery versus continued conservative treatment. Jatin Eldridge PA-C [address] [facility] [address], [place], [address], [facility] 09/21/2024 16:47:40 OBGyn Episode No OBEpisode recorded.
--- OUTSIDE RECORDS SUMMARY | 2024-12-14 17:44 | XMS_ITS | Data Portability ---
Author Organization [facility], [address] Address [address] [place] [address] Assessment No assessment recorded. Plan of Treatment Reminders Order Date Submit Date Provider Last Modified By Organization Details Last Modified Time Details Appointments None record ed. Lab None record ed. Referral None record ed. Procedures None record ed. Surgeries None record ed. Imaging None record ed. Medication Orders None record ed. Patient TargetsNo targets recorded. Patient InstructionsNo instructions recorded. Reason for Referral None Reported. Procedures Surgical History Date Name Laterality Status Provider Name and Address Organization Details Recorded Time OC-UDS Send Out Template NON DOT completed LAURA GUERRERO [employer] [facility] 02/27/2023 13:39:56 Imaging Results None recorded. Procedure Notes None recorded. Medical Equipment None Reported. Medications Name Sig Start Date Stop Date Status Note LastModified by Organization Details LastModified Time ibuprofen 800 mg tablet TAKE ONE TABLET BY MOUTH EVERY 8 HOURS NEEDED FOR PAIN FOR ARTHRITIS TAKE WITH FOOD OR MILK active Not Available Not Available No t Available diltiazem CD 240 mg capsule,exte nded release 24 hr TAKE ONE CAPSULE BY MOUTH EVERY DAY active Not Available Not Available No t Available triamcinolon e acetonide 0.1 % topical cream APPLY A THIN FILM TOPICALLY THREE TIMES A DAY FOR 14 DAYS active Not Available Not Available No t Available losartan 100 mg-hydrochlo rothiazide 25 mg tablet TAKE ONE TABLET BY MOUTH EVERY DAY active Not Available Not Available No t Available pravastatin 10 mg tablet TAKE ONE TABLET BY MOUTH EVERY DAY active Not Available Not Available No t Available clotrimazole -betamethaso ne 1 %-0.05 % topical cream APPLY TO THE AFFECTED AND SURROUNDING AREAS OF SKIN TWO TIMES A DAY IN THE MORNING AND EVENING FOR 2 WEEKS active Not Available Not Available No t Available fluticasone propionate 50 mcg/actuatio n nasal spray,suspen hudson INSTIL 2 SPRAYS INTO BOTH NOSTRILS DAILY active Not Available Not Available No t Available metformin ER 500 mg tablet,exten ded release 24 hr TAKE ONE TABLET BY MOUTH EVERY DAY WITH EVENING MEAL active Not Available Not Available No t Available amoxicillin 875 mg-potassium clavulanate 125 mg tablet TAKE ONE TABLET BY MOUTH EVERY 12 HOURS WITH FOOD OR MILK FOR 7 DAYS active Not Available Not Available No t Available amoxicillin 500 mg-potassium clavulanate 125 mg tablet TAKE ONE TABLET BY MOUTH EVERY 12 HOURS FOR 10 DAYS active Not Available Not Available Not Available Ventolin HFA 90 mcg/actuatio n aerosol inhaler INHALE 2 PUFFS 4 TIMES A DAY NEEDED FOR WHEEZING active Not Available Not Available No t Available bupropion HCl XL 300 mg 24 hr tablet, extended release TAKE ONE TABLET BY MOUTH EVERY DAY active Not Available Not Available No t Available Flovent HFA 110 mcg/actuatio n aerosol inhaler INHALE 2 PUFFS TWO TIMES A DAY. RINSE MOUTH AND THROAT AFTER USE. active Not Available Not Available N ot Available Pulmicort Flexhaler 180 mcg/actuatio n breath activated INHALE 2 PUFFS DAILY RINSE MOUTH AFTER USE WITH WATER active Not Available Not Available N ot Available diclofenac 1 % topical gel TAKE DIRECTED 1-2 GRAMS FOUR TIMES A DAY NOT TO EXCEED 16 GRAMS PER DAY active Not Available Not Available No t Available Vitals None Recorded Social History None recorded. Functional Status None recorded. Mental Status None recorded. Family History Nothing Reported. Medical History No medical history recorded. Gynecological HistoryNo gynecological history recorded. Obstetrics History GPAL:G 0 P 0 0 0 0 Past Encounters Encounter ID Performer Location Encounter Start Date Encounter Closed Date Diagnosis/Indication Diagnosis SNOMED-CT Code Diagnosis ICD10 Code Diagnosis Note [id number] [address] [place] [address] 06/03/2016 17:18:48 06/03/2016 17:49:48 [id number] [address] [place] [address] 04/26/2019 11:39:12 04/26/2019 12:56:05 [id number] F[place] Hanks [place] [address] [facility] [place] [id number] 02/27/2023 12:56:44 02/27/2023 13:40:40 History and physical examination, occupation 505580186 Z02.1 Health Concerns Section Related Observation LastModified by Organization Detai ls LastModified Time None Recorded Concern Status LastModified by Organization Details LastModified Time None Recorded Advance Directives Directive None Recorded Payers Encounter Date Sequence Insurance Name Policy Number Policy Garduno Covered Member ID Garduno Member ID Guarantor Name 06/03/2016 1 [place]: BCEVELYN (PPO) [id number] Tevin Olga [id number] Tevin Olga 02/27/2023 [employer] Ceee Olga OBGyn Episode No OBEpisode recorded.
[2024-12-14 18:27] LABS: Appearance Urine Clear; Color Urine Yellow; Glucose Urine UA Negative (Negative); Leukocyte Esterase Urine Small (1+) (Negative); Nitrite Urine Negative (Negative); UMIC TRIGGER UACC YES; Urine Blood Negative (Negative); Urine Ketones Negative (Negative); Urine Protein Negative (Neg-Trace)
[2024-12-14 18:45] LABS: Creatinine Urine 68.51 mg/dL; Microalbum/Creatinine Ratio Ur 17.5 ug/mg cr (<30)
[2024-12-14 18:48] LABS: Bacteria Urine None Seen (None Seen); Hyaline Casts Urine 0-2 /LPF (0-2); RBC Urine 0-2 /HPF (0-2); Squamous Epithelial Cell Urine 0-2 /HPF (0-2); UACC Culture Trigger YES; WBC Urine 0-5 /HPF (0-5)
== END 2024-12-14 15:01 | disposition home or self-care (01) ==
LOC: HO.LAB 15:00
PROVIDERS: PCP Family Medicine; Visit Provider Nurse Practitioner Family
DX: I10 Essential (primary) hypertension (principal); R82.71 Bacteriuria
CPT/HCPCS: 81001; 82043; 82570; 87086

== ENCOUNTER 2025-01-19 12:42 | Outpatient (REF) | payer BC, SELFPAY ==
--- OUTSIDE RECORDS SUMMARY | 2025-01-19 13:48 | XMS_ITS | Data Portability ---
Author Organization [facility] - [facility], [address] Address [address] [place] [address] Assessment No assessment recorded. Plan of Treatment [...] Out Template NON DOT completed LAURA GUERRERO [employer] [facility] 02/27/2023 13:39:56 Imaging Results None recorded. [...] SNOMED-CT Code Diagnosis ICD10 Code Diagnosis Note [id number] [address] [place] [address] 06/03/2016 17:18:48 06/03/2016 17:49:48 [id number] [address] [place] [address] 04/26/2019 11:39:12 04/26/2019 12:56:05 [id number] Fili Hanks, [employer] [address] [facility] [address] [facility], [place] [address] 02/27/2023 12:56:44 02/27/2023 13:40:40 History and physical examination, occupation 143928901 Z02.1 Health Concerns Section Related Observation LastModified by Organization Detai ls LastModified Time None Recorded Concern Status LastModified by Organization Details LastModified Time None Recorded Advance Directives Directive None Recorded Payers Insurance Date Sequence Insurance Name Policy Number Policy Garduno Covered Member ID Garduno Member ID Guarantor Name 02/27/2023 1 [place] BCEVELYN (PPO) [id number] Tevin Olga [id number] Tevin Olga 02/27/2023 [employer] CharisseMikey Olga OBGyn Episode No OBEpisode recorded.
[2025-01-19 14:20] LABS: Appearance Urine Clear; Color Urine Yellow; Glucose Urine UA Negative (Negative); Leukocyte Esterase Urine Negative (Negative); Nitrite Urine Negative (Negative); Urine Blood Negative (Negative); Urine Ketones Negative (Negative); Urine Protein Negative (Neg-Trace)
[2025-01-19 14:28] LABS: Amylase 46 U/L (28-100); Cholesterol 188 mg/dL (<200); HDL Cholesterol 50 mg/dL (>40); LDL Cholesterol Calculated 105 mg/dL (<100); Lipase 60 U/L (8-78); Triglycerides 165 mg/dL (<150)
== END 2025-01-19 12:43 | disposition home or self-care (01) ==
LOC: HO.WFDLDS 12:42
PROVIDERS: Referring Provider Nurse Practitioner Family; Visit Provider Family Medicine
DX: Z00.00 Encounter for general adult medical examination without abnormal findings (principal); R10.9 Unspecified abdominal pain; R82.71 Bacteriuria; Z13.6 Encounter for screening for cardiovascular disorders
CPT/HCPCS: 36415; 80061; 81003; 82150; 83690

== ENCOUNTER 2025-02-08 11:59 | Outpatient (AMB) | payer BC, SELFPAY ==
--- NOTE | 2025-02-08 12:14 | MHC.PC.OV ---
Vital Signs 02/08/25 12:16 Height 5 ft 6 in Weight 201 lb 2 oz BMI 32.5 BP 124/70 Blood Pressure Location Lt brachial Position Sitting Respiration 16 Pulse 88 Pulse Source Pulse Oximeter Temp 98.0 F Temp Source Oral Pulse Oximetry (%) 96 Oxygen Delivery Method Room Air Intake Visit Reasons: 3-4 weeks 30 min fu labs,abd pain, back pain, dm Intake Note: patient is scheduled for follow-up to go over lab results and patient a preauthorization for inhalers Allergies No Known Allergies Allergy (Verified 02/08/25 12:14) Medication List - Last Reconciled 02/08/25 by Kenneth Montalvo MD albuterol sulfate 90 mcg/actuation (ProAir HFA) 2 puffs inhalation Q4-6H PRN blood sugar diagnostic (FreeStyle Lite Strips) DX: E11.9, test blood sugar 2 times a day, 90 days blood-glucose meter (FreeStyle Lite Meter kit) DX: E11.9, test blood sugar as directed, 999 days bupropion HCl XL 300 mg PO QAM 90 days diltiazem HCl ER 240 mg PO DAILY 90 days fluticasone furoate 100 mcg/actuation (Arnuity Ellipta) 1 inh inhalation DAILY ibuprofen 800 mg PO BID PRN 30 days lancets (FreeStyle Lancets) Test blood sugar 2 times a day. 90 days losartan-hydrochlorothiazide 100-25 mg 1 tab PO DAILY metformin 500 mg PO BID 90 days pravastatin 10 mg PO DAILY 90 days semaglutide 2 mg (0.75 mL) subcut QWEEK 84 days Tobacco use date assessed: 02/08/25 Fall risk assessment: No Falls in past year Dental Screening Dental Screen Date: 11/18/23 Did you have a dental visit in the last 12 months?: Yes Did you have a dental problem in the last 6 months where you did not have access to dental care?: No Was dental information given to patient?: No HPI 3-4 weeks 30 min fu labs,abd pain, back pain, dm HPI Details 64 y/o female presents to f/u labs, abd pain, back pain, diabetes. Blood pressure today 124/70, 88p. She is on losartan-HCTZ 100-25mg daily. Labs drawn 01/19/25. Reviewed labs with pt. Triglycerides 165. TC 188 LDL 105. HDL 50. She is on pravastatin 10mg daily. Had been on semaglutide. Had reported episodes of abd. pain/cramping. Also reports some low back pain. Had been advised to discontinue semaglutide and she notes abd. pain had stopped since then. A1c today 5.4%. [facility] Medical History (Updated 02/08/25 @ 13:03 by Shantanu Strickland) History of mammogram (~2023) Depression Anxiety Eczema Arthritis High cholesterol Sinusitis Asthma Surgical History H/O tubal ligation History of tonsillectomy Family History Mother High blood pressure Diabetes Father High blood pressure Sister High blood pressure Diabetes Substance abuse Mental health disorder Child No Financial Resp Mental health disorder Social History Housing: House Patient Tobacco Use Status: Never used Tobacco e-Cigarette/Vaping Use: Never Used Second Hand Smoke Exposure: No service: No Current occupational status: employed 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 Cognitive needs: No Hearing needs: No Vision needs: No Questionnaire Thrive Questionnaire Date Thrive assessed: 02/08/25 I am a: Patient What is your living situation today?: I have a steady place to live Within the past 12 months, did the food you bought not last and you didn't have the money to get more?: Sometimes True Within the past 12 months, did you worry whether your food would run out before you got money to buy more?: Never true Do you have trouble paying for medicines?: Yes Do you have trouble getting transportation to medical appointments?: No Do you have trouble paying your heating and electricity bill?: Yes Do you have trouble taking care of your child, family member or friend?: No Do you have trouble with day-to-day activities such as bathing, preparing meals, shopping, managing finances, etc.?: No Are you currently unemployed and looking for a job?: No Are you interested in more education?: No Currently or been in a relationship where the following occur: No concerns reported THRIVE Score: 2 JAYNE-7 AMB Questionnaire JAYNE-7 Date JAYNE - 7 assessed: 02/08/25 Source: Developed by Drs. Melo Hunter, Ana Herrera, Asael Brown and colleagues, with an educational tamika from [employer]. Physical exam (Primary Care) Vital Signs: Last Vital Signs Temp 98.0 F 02/08/25 12:16 Pulse 88 02/08/25 12:16 Resp 16 02/08/25 12:16 BP 124/70 02/08/25 12:16 Pulse Ox 96 02/08/25 12:16 Oxygen Delivery Method Room Air 02/08/25 12:16 BMI result Body Mass Index 32.5 Tobacco/Smoking Status: Tobacco use Status Tobacco use date assessed 02/08/25 02/08/25 12:21 Patient Tobacco Use Status Never used Tobacco 02/08/25 12:21 e-Cigarette/Vaping Use Never Used 02/08/25 12:21 Thrive Assessment: Date of Thrive Assessment Date Thrive assessed 02/08/25 02/08/25 12:21 Currently or been in a relationship where the following occur: No concerns reported Coding Level of Care Code Est Pt Level 4 (93934) Diagnoses Hypertension due to endocrine disorder I15.2 Hypertension type: secondary to endocrine disorders Type 2 diabetes mellitus with other specified complication, without long-term current use of insulin E11.69 Diabetes mellitus complication status: with other specified complication Diabetes mellitus fpc insulin use: without long filler cigar roller machine use Back pain M54.9 Abdominal cramping R10.9 High cholesterol E78.00 Assessment & Plan Assessment & Plan (1) Hypertension: Code(s): I10 - Essential (primary) hypertension Category: Medical Qualifiers: Hypertension type: secondary to endocrine disorders Qualified Code(s): I15.2 - Hypertension secondary to endocrine disorders Plan: Blood?pressure?is?controlled.??Goal?is?less?than?140/90 Continue?current?medications (2) T2DM (type 2 diabetes mellitus): Code(s): E11.9 - Type 2 diabetes mellitus without complications Category: Medical Qualifiers: Diabetes mellitus complication status: with other specified complication Diabetes mellitus long filler cigar roller machine insulin use: without fpc use Qualified Code(s): E11.69 - Type 2 diabetes mellitus with other specified complication Plan: A1c?today: She?had?been?on?semaglutide?and?more?recently?she?was?having?low?abdominal?pain?and?low?back?pain Lipase?and?amylase?were?negative Urine?studies?were?negative She?was?advised?to?discontinue?semaglutide?in?since?she?did?so?her?abdominal?pain?has?stopped. She?would?like?to?try?again?but?within?other?medication. Will?try?Mounjaro?at?a?lower?dose Hydrate?well?and?we?will?follow-up?in?3?months.??Call?or?return?to?office?sooner?if?any?problems. (3) Back pain: Code(s): M54.9 - Dorsalgia, unspecified Category: Medical Plan: Resolved (4) Abdominal cramping: Code(s): R10.9 - Unspecified abdominal pain Category: Medical Plan: Resolved (5) High cholesterol: Code(s): E78.00 - Pure hypercholesterolemia, unspecified Category: Medical Plan: LDL?cholesterol?is?still?too?high Advised?diet?lower?in?saturated?fats?and?cholesterol She?is?on?pravastatin?10?mg?daily Will?recheck?with?next?blood?draw?and?we?will?discuss Orders: Orders Microalbumin, Random (w Creat) Today I10 - Essential (primary) hypertension, I15.2 - Hypertension secondary to endocrine disorders Comprehensive [place]. Panel Fast Today I15.2 - Hypertension secondary to endocrine disorders, Z00.00 - Encounter for general adult medical examination without abnormal findings Lipid Panel Today E78.00 - Pure hypercholesterolemia, unspecified, Z00.00 - Encounter for general adult medical examination without abnormal findings TSH reflex Free T4 Today I15.2 - Hypertension secondary to endocrine disorders, Z00.00 - Encounter for general adult medical examination without abnormal findings UA CC w/rflx Micro + Cult Today I15.2 - Hypertension secondary to endocrine disorders, Z00.00 - Encounter for general adult medical examination without abnormal findings Medications: New tirzepatide (Mounjaro) for 4 weeks 2.5 mg (0.5 mL) subcut QWEEK 28 days 2 mL 3RF E11.69 - Type 2 diabetes mellitus with other specified complication, E66.9 - Obesity, unspecified tirzepatide (Mounjaro) for 4 weeks 2.5 mg (0.5 mL) subcut QWEEK 28 days 2 mL 3RF E11.69 - Type 2 diabetes mellitus with other specified complication, E66.9 - Obesity, unspecified Discontinued semaglutide for 4 weeks Discontinued Reason: Doctor's Order 2 mg (0.75 mL) subcut QWEEK 84 days 9 mL 3RF E11.9 - Type 2 diabetes mellitus without complications
[2025-02-08 12:16] VITALS: BP 124/70; PULSE 88; RESP 16; TEMP 36.7; O2SAT 96; BMI 32.5
--- OUTSIDE RECORDS SUMMARY | 2025-02-08 12:46 | XMS_ITS | Data Portability ---
Author Organization [facility], [address] [place] [address] Assessment No assessment recorded. Plan of Treatment [...] Out Template NON DOT completed LAURA GUERRERO [facility] 02/27/2023 13:39:56 Imaging Results None recorded. [...] SNOMED-CT Code Diagnosis ICD10 Code Diagnosis Note [id number] [address] [place] [address] 06/03/2016 17:18:48 06/03/2016 17:49:48 [id number] [address] [place] [address] 04/26/2019 11:39:12 04/26/2019 12:56:05 [id number] Fili Hanks, WASTE MANAGEMENT ENGINEER [address] [facility] [address] [facility] angel, [place] [phone] 02/27/2023 12:56:44 02/27/2023 13:40:40 History and physical examination, occupation [id number] Z02.1 Health Concerns Section Related Observation LastModified by Organization Detai ls LastModified Time None Recorded Concern Status LastModified by Organization Details LastModified Time None Recorded Advance Directives Directive None Recorded Payers Insurance Date Sequence Insurance Name Policy Number Policy Garduno Covered Member ID Garduno Member ID Guarantor Name 02/27/2023 1 DEAN-SYLVIE (PPO) [id number] Tevin Olga [id number] Tevin Olga 02/27/2023 OC-ESCREEN [employer] CharisseMikey Olga OBGyn Episode No OBEpisode recorded.
== END 2025-02-08 13:24 | disposition home or self-care (01) ==
LOC: HO.HMCFM 12:00
PROVIDERS: PCP Family Medicine; Visit Provider Family Medicine
DX: I15.2 Hypertension secondary to endocrine disorders (principal); E11.69 Type 2 diabetes mellitus with other specified complication; M54.9 Dorsalgia, unspecified; R10.9 Unspecified abdominal pain; E78.00 Pure hypercholesterolemia, unspecified

== ENCOUNTER → 2025-02-08 11:59 | Outpatient (BNVA) | payer BC, SELFPAY | PROVIDERS: PCP Family Medicine; Visit Provider Family Medicine | DX: I15.2 Hypertension secondary to endocrine disorders (principal); E11.69 Type 2 diabetes mellitus with other specified complication; M54.9 Dorsalgia, unspecified; R10.9 Unspecified abdominal pain; E78.00 Pure hypercholesterolemia, unspecified; Z79.899 Other long term (current) drug therapy | CPT/HCPCS: 83036 ==

== ENCOUNTER 2025-05-03 10:03 | Outpatient (REF) | payer BC, SELFPAY ==
[2025-05-03 15:44] LABS: Amylase 49 U/L (28-100)
[2025-05-03 16:14] LABS: Alanine Aminotransferase 26 U/L (0-31); Albumin Level 4.6 g/dL (3.5-5.0); Alkaline Phosphatase 105 U/L (39-117); Anion Gap 13 (12-20); Aspartate Amino Transferase 33 U/L (5-31); Blood Urea Nitrogen 12 mg/dL (9-16); Calcium 9.2 mg/dL (8.4-10.2); Carbon Dioxide 25 mmol/L (22-29); Chloride 107 mmol/L (96-108); Cholesterol 206 mg/dL (<200); Estimated Glomerular Filt Rate > 60; HDL Cholesterol 55 mg/dL (>40); Microalbum/Creatinine Ratio Ur 10.0 ug/mg cr (<30); Potassium 3.9 mmol/L (3.3-5.1); Sodium 141 mmol/L (135-145); Total Protein 6.7 g/dL (6.5-8.0); Triglycerides 157 mg/dL (<150)
== END 2025-05-03 10:04 | disposition home or self-care (01) ==
LOC: HO.HMGCLDS 10:03
PROVIDERS: Nurse Practitioner Family; PCP Family Medicine; Visit Provider Family Medicine
DX: Z00.00 Encounter for general adult medical examination without abnormal findings (principal); I10 Essential (primary) hypertension; I15.2 Hypertension secondary to endocrine disorders; E78.00 Pure hypercholesterolemia, unspecified; R10.9 Unspecified abdominal pain
CPT/HCPCS: 36415; 80053; 80061; 82043; 82150; 82570; 84443

== ENCOUNTER 2025-05-12 14:23 | Outpatient (AMB) | payer BC, SELFPAY ==
--- NOTE | 2025-05-12 14:48 | A.OFFPC_ITS ---
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 Required: No Is last menstrual period known: No Post menopausal: No Patient : No Allergies No Known Allergies Allergy (Verified 05/12/25 15:00) Medication List - Last Reconciled 05/12/25 by Kenneth Montalvo MD albuterol sulfate 90 mcg/actuation (ProAir HFA) 2 puffs inhalation Q4-6H PRN blood sugar diagnostic (FreeStyle Lite Strips) DX: E11.9, test blood sugar 2 times a day, 90 days blood-glucose meter (FreeStyle Lite Meter kit) DX: E11.9, test blood sugar as directed, 999 days bupropion HCl XL 300 mg PO QAM 90 days diltiazem HCl ER 240 mg PO DAILY 90 days fluticasone furoate 100 mcg/actuation (Arnuity Ellipta) 1 inh inhalation DAILY ibuprofen 800 mg PO BID PRN lancets (FreeStyle Lancets) Test blood sugar 2 times a day. 90 days losartan-hydrochlorothiazide 100-25 mg 1 tab PO DAILY metformin 500 mg PO BID 90 days pravastatin 10 mg PO DAILY 90 days tirzepatide (Mounjaro) 2.5 mg (0.5 mL) subcut QWEEK 28 days Tobacco use date assessed: 05/12/25 Fall risk assessment: No Falls in past year Last assessed Fall Risk: 05/12/25 Dental Screening Dental Screen Date: 05/12/25 Did you have a dental visit in the last 12 months?: Yes Did you have a dental problem in the last 6 months where you did not have access to dental care?: No Was dental information given to patient?: Patient has dentist HPI f/u HLD, HTN, diabetes HPI Details 64 y/o female presents to f/u HLD, HTN, diabetes. A1c today 05/12/25 5.3%. She is on metformin 500mg b.i.d, Mounjaro 2.5mg. BP today 131/91, 83p. She is on losartan-HCTZ 100-25mg/ Labs drawn 05/03/25. Reviewed labs with pt. Fasting glucose 109. Mildly elevated AST at 33. Triglycerides 157. TC 206. LDL 120. HDL 55. She is on pravastatin 10mg daily. HPI Comments History of Present Illness Details Documentation assistance for Kennteh Montalvo MD, was provided by Shantanu Strickland,? Institute Scientist on 05/12/2025 at 3:31 PM EST. I, Dr. Montalvo, have read, observed, and verified documentation. ?? [facility] Medical History (Updated 05/12/25 @ 15:30 by Shantanu Strickland) History of mammogram (~2023) Depression Anxiety Eczema Arthritis High cholesterol Sinusitis Asthma Surgical History H/O tubal ligation History of tonsillectomy Family History Mother High blood pressure Diabetes Father High blood pressure Sister High blood pressure Diabetes Substance abuse Mental health disorder Child No Financial Resp Mental health disorder Social History Housing: House Patient Tobacco Use Status: Never used Tobacco e-Cigarette/Vaping Use: Never Used Second Hand Smoke Exposure: No service: No Current occupational status: employed 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 Cognitive needs: No Hearing needs: No Vision needs: No Questionnaire Thrive Questionnaire Date Thrive assessed: 09/27/24 I am a: Patient What is your living situation today?: I have a steady place to live Within the past 12 months, did the food you bought not last and you didn't have the money to get more?: Sometimes True Within the past 12 months, did you worry whether your food would run out before you got money to buy more?: Never true Do you have trouble paying for medicines?: Yes Do you have trouble getting transportation to medical appointments?: No Do you have trouble paying your heating and electricity bill?: Yes Do you have trouble taking care of your child, family member or friend?: No Do you have trouble with day-to-day activities such as bathing, preparing meals, shopping, managing finances, etc.?: No Are you currently unemployed and looking for a job?: No Are you interested in more education?: No Currently or been in a relationship where the following occur: No concerns reported THRIVE Score: 2 JAYNE-7 AMB Questionnaire JAYNE-7 Date JAYNE - 7 assessed: 02/08/25 Source: Developed by Drs. Melo Hunter, Ana Herrera, Asael Brown and colleagues, with an educational tamika from [employer]. Review of Systems Const Denies chills, Denies fatigue, Denies fever(s), Denies headache(s) and Denies weakness ENT Denies dizziness and Denies headache(s) Card Denies dyspnea Resp Denies cough, Denies dyspnea, Denies wheezing and Denies other (shortness of breath) Musc Denies numbness and Denies tingling Neuro Denies dizziness, Denies headache(s), Denies numbness, Denies tingling and Denies weakness Psych Denies anxiety and Denies depression Endo Denies fatigue Aller/Immun Denies wheezing Physical exam (Primary Care) Vital Signs: Last Vital Signs Pulse 83 05/12/25 15:01 Resp 16 05/12/25 15:01 BP 131/91 H 05/12/25 15:01 Pulse Ox 100 05/12/25 15:01 Oxygen Delivery Method Room Air 05/12/25 15:01 BMI result Body Mass Index 32.6 Tobacco/Smoking Status: Tobacco use Status Tobacco use date assessed 05/12/25 05/12/25 15:07 Patient Tobacco Use Status Never used Tobacco 05/12/25 14:50 e-Cigarette/Vaping Use Never Used 05/12/25 14:50 Thrive Assessment: Date of Thrive Assessment Date Thrive assessed 09/27/24 05/12/25 14:50 Currently or been in a relationship where the following occur: No concerns reported Const General: well developed; No acute distress Nutritional Appearance: well nourished Orientation/consciousness: patient oriented x3 HENMT Head: Yes normocephalic and Yes atraumatic Eyes General: appearance normal, both eyes and all related structures Pupils: Equal, round and reactive pupils present EOM: EOMs intact bilaterally Resp Effort & Inspection: normal respiratory effort Auscultation: clear to auscultation bilaterally Cardio Rate: regular rate Rhythm: regular rhythm Heart sounds: S1 normal heart sound present, S2 normal heart sound present, no gallops, no murmurs and no rubs Neuro General: patient oriented x3 and gait normal Cranial nerves: Yes Equal, round and reactive pupils present Psych Affect: normal affect Coding Level of Care Code Est Pt Level 4 (48493) Diagnoses High cholesterol E78.00 Hypertension due to endocrine disorder I15.2 Hypertension type: secondary to endocrine disorders Elevated liver enzymes R74.8 Type 2 diabetes mellitus with other specified complication, without long-term current use of insulin E11.69 Diabetes mellitus complication status: with other specified complication Diabetes mellitus terminal carman insulin use: without terminal carman use Osteopenia M85.80 Assessment & Plan Assessment & Plan (1) High cholesterol: Code(s): E78.00 - Pure hypercholesterolemia, unspecified Category: Medical Plan: LDL cholesterol has risen. He notes dietary indiscretions Encouraged her to work at improved diet, lower in saturated fats and cholesterol Continue pravastatin Will recheck this with next visit and if still too high, will increase her p ravastatin (2) Hypertension: Code(s): I10 - Essential (primary) hypertension Category: Medical Qualifiers: Hypertension type: secondary to endocrine disorders Qualified Code(s): I15.2 - Hypertension secondary to endocrine disorders Plan: Diastolic blood pressure is a little too high No medication changes made today. Encouraged a diet lower in salt/sodium Encouraged weight loss and exercise (3) Elevated liver enzymes: Code(s): R74.8 - Abnormal levels of other serum enzymes Category: Medical Plan: Mildly elevated liver enzyme and this will be repeated with next blood draw (4) T2DM (type 2 diabetes mellitus): Code(s): E11.9 - Type 2 diabetes mellitus without complications Category: Medical Qualifiers: Diabetes mellitus complication status: with other specified complication Diabetes mellitus fci insulin use: without terminal carman use Qualified Code(s): E11.69 - Type 2 diabetes mellitus with other specified complication Plan: A1c 5.3%. Controlled. Goal is less than 7.0% Continue current medications Increase Mounjaro for improved weight loss (5) Osteopenia: Comment: DEXA 2020 Code(s): M85.80 - Other specified disorders of bone density and structure, unspecified site Category: Medical Plan: She will be due for bone density test in October Encouraged good sources of calcium and encouraged weight-bearing exercise Orders: Referrals Cologuard Test Z12.11 - Encounter for screening for malignant neoplasm of colon, Z12.12 - Encounter for screening for malignant neoplasm of rectum Medications: Changed From tirzepatide (Mounjaro) for 4 weeks 2.5 mg (0.5 mL) subcut QWEEK 28 days 2 mL 3RF E11.69 - Type 2 diabetes mellitus with other specified complication, E66.9 - Obesity, unspecified To tirzepatide for 4 weeks 5 mg (0.5 mL) subcut QWEEK 2 mL 3RF 28 days E11.69 - Type 2 diabetes mellitus with other specified complication, E66.9 - Obesity, unspecified Refilled diltiazem HCl ER 240 mg PO DAILY 90 caps 3RF 90 days
[2025-05-12 15:01] VITALS: BP 131/91; PULSE 83; RESP 16; O2SAT 100; BMI 32.6
== END 2025-05-12 15:44 | disposition home or self-care (01) ==
LOC: HO.HMCFM 14:24
PROVIDERS: PCP Family Medicine; Visit Provider Family Medicine
DX: E78.00 Pure hypercholesterolemia, unspecified (principal); I15.2 Hypertension secondary to endocrine disorders; R74.8 Abnormal levels of other serum enzymes; E11.69 Type 2 diabetes mellitus with other specified complication; M85.80 Other specified disorders of bone density and structure, unspecified site